=== PATIENT | female | born 2005 | race Caucasian/White ===

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

== ENCOUNTER 2024-06-06 20:34 | Outpatient (REF) | payer BC, SELFPAY ==
--- OUTSIDE RECORDS SUMMARY | 2024-06-06 20:36 | XMS_ITS | Encounter Summary ---
Author Organization [facility] Address [address] [place] [address] Care Team Providers Care Academic Specialist Name Role Phone Unknown, Provider Primary Care Provider Unava ilable Encounter Details Date Type Department Care Team (Late st Contact Info) Description 09/12/2019 Lab Requisition [facility] Pathology & Laboratory Medicine - [address] [address] Unknown, Provider, Social History Tobacco Use Types Packs/Day Years Used Date Smoking Tobacco: Never Assessed Comments Unknown Sex and Gender Information Value Date Recorded Sex Assigned at Not on file Legal Sex Female 17:46 EDT Gender Identity Not on file Sexual Orientation Not on file documented as of this encounter Plan of Treatment Not on file documented as of this encounter Procedures Procedure Name Priority Date/Time Associated Diagnosis Comments CHLAMYDIA/N. GONORRHOEAE AMPLIFIED NUCLEIC ACID Routine 09/12/2019 16:21 EDT documented in this encounter Results * CHLAMYDIA/N. GONORRHOEAE AMPLIFIED RNA (09/12/2019 16:21 EDT) Neisseria gonorrhoeae Result Negative Negative 09/13/2019 14:03 EDT [facility] Chlamydia trachomatis Result Negative Negative 09/13/2019 14:03 EDT [facility] Swab ENTIRE WALL OF CERVIX / Unknown 09/12/2019 16:21 EDT 09/12/2019 21:56 EDT us Provider Unknown MICROBIOLOGY - GENERAL ORDER BENEDICTO Final Result [facility] [address] [place] [address] documented in this encounter Visit Diagnoses Not on filedocumented in this encounter Additional Health Concerns Infection Onset Date Last Indicated Resolved Time R/O COVID-19 12/12/2019 12/12/2019 12/17/2019 22:1 7 EDT documented as of this encounter Care Teams Academic Specialist Relationship Specialty Start Date End Date Unknown, Provider, PCP - General 05/07/20 documented as of this encounter
--- OUTSIDE RECORDS SUMMARY | 2024-06-06 20:36 | XMS_ITS | Encounter Summary ---
[place] [address] Care Team Providers Care Production Line Operator Name Role Phone Tulio Kline MD Primary Care Provider Encounter Details Date Type Department Care Team (Late st Contact Info) Description 07/24/2021 Transcribe Orders [facility] [place] [phone] Bonita Wallis MD [address] [place] [address] Bipolar 2 disorder Social History Tobacco Use Types Packs/Day Years Used Date Smoking Tobacco: Never Assessed Sex and Gender Information Value Date Recorded Sex Assigned at Not on file Gender Identity Not on file Sexual Orientation Not on file documented as of this encounter Plan of Treatment Not on file documented as of this encounter Visit Diagnoses Diagnosis Bipolar 2 disorder Other bipolar disorders documented in this encounter Care Teams Production Line Operator Relationship Specialty Start Date End Date Tulio Kline MD [address] [place] [id number] PCP - General General Internal Medicine 05/12/2108/05 documented as of this encounter
--- OUTSIDE RECORDS SUMMARY | 2024-06-06 20:36 | XMS_ITS | Continuity of Care Document ---
Author Organization [facility] Address [address] [place] [address] Care Team Providers Care Medical Records Supervisor Name Role Phone Alisha Early Chilo Primary Care Physician Encounter [facility] Date(s): 02/21/24 - 02/21/[address] [phone] [place] Encounter Diagnosis Abdominal pain(Discharge Diagnosis) - 02/21/24 Right upper quadrant pain(Final) - Left upper quadrant pain(Final) - Hematuria, unspecified(Final) - Discharge Disposition: Home or Self Care Attending Physician: An Ace MD Admitting Physician: An Ace MD Allergies, Adverse Reactions, Alerts Substance Criticality Severity Reaction Reaction Severity Status LATEX High criticality Severe Skin rash Act lynnette ibuprofen Unable to assess criticality Unknown Eruption Active aspirin Unable to assess criticality Unknown Eruption Active iodinated radiocontrast dyes Unable to assess criticality Unknown Active iodine topical High criticality Moderate Skin rash Active Assessment and Plan Extracted from: Title:ED Provider Note Author:Ashleigh Ace MD Date:02/21/24 Assessment/Plan 1.??Abdominal pain??R10.9 ??Patient reports lower abdominal pain??patient worried that her IUD is not in the right place??based??on ultrasound??in September. ??Patient also feels that she has hematuria at times however??urine is??reassuring and??renal colic is reassuring. ??Did discuss with her that we would place an order for her to be seen by the TECHNICAL ACCOUNT REPRESENTATIVE??office within the next week.?Patient reports that she has endometriosis that may cause her some problems and discomfort.?? Patient aware she may return to the emergency department at anytime or follow-up with her primary care provider. Ordered: ED Visit Follow Up [facility] OBSTEPHAN[facility], Orders for future visit, 02/21/24 18:06:00 EDT, Abdominal pain ?? 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 Additional Instructions: Future Appointments Immunizations Given and Recorded Vaccine Date Status Refusal Reason HPV, unspecified formulation 09/07/14 Recorded meningococcal polysaccharide vaccine 09/07/14 Prasanth rded poliovirus vaccine, inactivated 07/10/10 Recorded tetanus/diphth/pertuss (Tdap) adult/adol 09/19/08 Recorded varicella virus vaccine 06/06/08 Recorded measles/mumps/rubella virus vaccine 04/09/08 Recor ded pneumococcal 13-valent conjugate vaccine 04/12/06 Recorded haemophilus b conjugate (HbOC) vaccine 11/24/04 Re corded pneumococcal 23-polyvalent vaccine 03 Record ed hepatitis B pediatric vaccine 03 Recorded Results Laboratory List Name Date Test Urine Qual 02/21/24 Urinalysis with Micro if Indicated and C ulture if Indicated 02/21/24 Urinalysis Microscopic 02/21/24 Beta hCG Quantitative 02/21/24 CBC w/ Diff 02/21/24 Comprehensive Metabolic Panel (CMP) 02/20 Lipase Level 02/21/24 Automated Diff 02/21/24 Most recent to oldest [Reference Range]: 1 WBC [5.0-10.0 x10^3/mcL] 13.5 x10^3/mcL *HI* (02/21/24 3:12 PM) RBC [4.1-5.3 x10^6/mcL] 4.5 x10^6/mcL (02/21/24 3:12 PM) Neutro Auto [40.0-75.0 %] 67.9 % (02/21/24 3:12 PM) Lymph Auto [20.0-50.0 %] 22.6 % (02/21/24 3:12 PM) [place] Auto [2.0-15.0 %] 6.4 % (02/21/24 3:12 PM) Basophil Auto [0.0-1.0 %] 0.6 % (02/21/24 3:12 PM) BUN [7-18 mg/dL] 9 mg/dL (02/21/24 3:12 PM) UA Color Yellow (02/21/24 5:03 PM) UA WBC [0-3] 25-50 *ABN* (02/21/24 5:03 PM) Glucose Level [74-106 mg/dL] 118 mg/dL *HI* (02/21/24 3:12 PM) Potassium Level [3.5-5.1 mmol/L] 3.4 mmo l/L *LOW* (02/21/24 3:12 PM) MCV [80.0-96.0 fL] 92.4 fL (02/21/24 3:12 PM) UA Urobilinogen Normal *NA* (02/21/24 5:03 PM) UA Bili [Negative] Negative *NA* (02/21/24 5:03 PM) UA Ketones Negative *NA* (02/21/24 5:03 PM) AST [15-37 unit/L] 14 unit/L *LOW* (02/21/24 3:12 PM) ALT [14-59 unit/L] 16 unit/L (02/21/24 3:12 PM) MCHC [31.0-35.0 g/dL] 33.9 g/dL (02/21/24 3:12 PM) Sodium Level [136-145 mmol/L] 139 mmol/L (02/21/24 3:12 PM) UA RBC [0-2] 10-25 (02/21/24 5:03 PM) UA Leuk Est 2+ *ABN* (02/21/24 5:03 PM) UA Nitrite Negative *NA* (02/21/24 5:03 PM) UA Glucose [Negative] Negative *NA* (02/21/24 5:03 PM) Hct [37.0-47.0 %] 41.3 % (02/21/24 3:12 PM) UA Bacteria Rare /HPF (02/21/24 5:03 PM) Lipase Level [16-77 unit/L] 23 unit/L 1 (02/21/24 3:12 PM) Calcium Level [8.5-10.1 mg/dL] 9.0 mg/dL (02/21/24 3:12 PM) Albumin Level [3.4-5.0 g/dL] 4.0 g/dL (02/21/24 3:12 PM) Protein Total [6.4-8.2 g/dL] 7.9 g/dL (02/21/24 3:12 PM) UA Protein Trace *ABN* (02/21/24 5:03 PM) MCH [26.0-32.0 pg] 31.3 pg (02/21/24 3:12 PM) Neutro Absolute 9.2 x10^3/mcL *NA* (02/21/24 3:12 PM) Bilirubin Total [0.2-1.0 mg/dL] 0.6 mg/d L (02/21/24 3:12 PM) Hgb [12.0-16.0 g/dL] 14.0 g/dL (02/21/24 3:12 PM) Alk Phos [46-146 unit/L] 74 unit/L (02/21/24 3:12 PM) UA Blood 3+ *ABN* (02/21/24 5:03 PM) UA Mucous None Seen /HPF (02/21/24 5:03 PM) UA Spec Grav <=1.005 *NA* (02/21/24 5:03 PM) Platelets [130-450 x10^3/mcL] 191 x10^3/ mcL (02/21/24 3:12 PM) CO2 [21-32 mmol/L] 23 mmol/L (02/21/24 3:12 PM) UA Squam Epithelial [None Seen] Rare (02/21/24 5:03 PM) UA pH 6.5 *NA* (02/21/24 5:03 PM) eGFR Non-AA [>=60] 110 (02/21/24 3:12 PM) eGFR AA [>=60] 110 (02/21/24 3:12 PM) UA Appear Hazy *ABN* (02/21/24 5:03 PM) Chloride Level [98-107 mmol/L] 104 mmol/ L (02/21/24 3:12 PM) RDW-CV [11.5-14.5 %] 12.5 % (02/21/24 3:12 PM) Imm Gran Auto [0.0-0.9 %] 0.4 % (02/21/24 3:12 PM) Slide Review Not Indicated (02/21/24 3:12 PM) UA Culture Ind?. Indicated (02/21/24 5:03 PM) Creatinine Level [0.55-1.02 mg/dL] 0.79 mg/dL (02/21/24 3:12 PM) Eos, Auto [1.0-6.0 %] 2.1 % (02/21/24 3:12 PM) U hCG Ql Negative (02/21/24 5:03 PM) Beta hCG Qnt [1-6 mIntlUnit/mL] <1 mIntl Unit/mL *LOW* (02/21/24 3:12 PM) 1Interpretive Data: Effective 03/26/22, [facility] has switched to a revised Lipase test.Note new ReferenceRange. Orders for Microbiology Reports Name Date Urine Culture 02/21/24 Microbiology Reports TEST:Urine Culture STATUS:Order in Progress BODY SITE: SOURCE:Urine COLLECTED DATE/TIME:02/21/24 5:03 PM PRELIMINARY REPORT No growth at 24 hours. Vital Signs Most recent to oldest [Reference Range]: 1 2 3 Temperature Temporal Artery [36-38 Deg C] 37.0 Deg C (02/21/24 6:10 PM) 37.4 Deg C (02/21/24 2:56 PM) Temperature Temporal Artery (DegF) [97.3-100 Deg F] 98.6 Deg F (02/21/24 6:10 PM) Peripheral Pulse Rate [60-100 bpm] 67 bpm (02/21/24 6:10 PM) 57 bpm *LOW* (02/21/24 4:04 PM) 104 bpm *HI* (02/21/24 2:56 PM) Respiratory Rate [12-24 br/min] 16 br/min (02/21/24 6:10 PM) 16 br/min (02/21/24 2:56 PM) Blood Pressure [90-140/60-90 mmHg] 115/72mmHg (02/21/24 6:10 PM) 114/84mmHg (02/21/24 4:00 PM) 119/78mmHg (02/21/24 2:56 PM) Mean Arterial Pressure, Cuff [65-140 mmHg] 86 mmHg (02/21/24 6:10 PM) 92 mmHg (02/21/24 2:56 PM) Weight Estimated 56.7 kg (02/21/24 2:56 PM) Body Mass Index Estimated 23.62 kg/m2 (02/21/24 2:56 PM) Height/Length Estimated 154.94 cm (02/21/24 2:56 PM) Social History Social History Type Response Tobacco Never tobacco user T obacco Use:. Sex Female Sex Representation Female (finding) Hospital Discharge Instructions Patient Education 02/21/2024 17:05:59 Abdominal Pain, Adult Abdominal Pain, Adult Pain in the abdomen (abdominal pain) can be caused by many things. Often, abdominal pain is not serious and it gets better with no treatment or by being treated at home. However, sometimes abdominal pain is serious. Your health care provider will ask questions about your medical history and do a physical exam to try to determine the cause of your abdominal pain. Follow these instructions at home: Medicines ??? Take rmqp-[id number]-hrnbkno and prescription medicines only as told by your health care provider. ??? Do not take a laxative unless told by your health care provider. General instructions ??? Watch your condition for any changes. ??? Drink enough fluid to keep your urine pale yellow. ??? Keep all follow-up visits as told by your health care provider. This is important. Contact a health care provider if: ??? Your abdominal pain changes or gets worse. ??? You are not hungry or you lose weight without trying. ??? You are constipated or have diarrhea for more than 2???3 days. ??? You have pain when you urinate or have a bowel movement. ??? Your abdominal pain wakes you up at night. ??? Your pain gets worse with meals, after eating, or with certain foods. ??? You are vomiting and cannot keep anything down. ??? You have a fever. ??? You have blood in your urine. Get help right away if: ??? Your pain does not go away as soon as your health care provider told you to expect. ??? You cannot stop vomiting. ??? Your pain is only in areas of the abdomen, such as the right side or the left lower portion of the abdomen. Pain on the right side could be caused by appendicitis. ??? You have bloody or black stools, or stools that look like tar. ??? You have severe pain, cramping, or bloating in your abdomen. ??? You have signs of dehydration, such as: ??? Dark urine, very little urine, or no urine. ??? Cracked lips. ??? Dry mouth. ??? Sunken eyes. ??? Sleepiness. ??? Weakness. ??? You have trouble breathing or chest pain. Summary ??? Often, abdominal pain is not serious and it gets better with no treatment or by being treated at home. However, sometimes abdominal pain is serious. ??? Watch your condition for any changes. ??? Take hxne-wbr-ivuqhrr and prescription medicines only as told by your health care provider. ??? Contact a health care provider if your abdominal pain changes or gets worse. ??? Get help right away if you have severe pain, cramping, or bloating in your abdomen. This information is not intended to replace advice given to you by your health care provider. Make sure you discuss any questions you have with your health care provider. Document Revised: 07/12/2020 Document Reviewed: 10/02/2019 [employer] Patient Education ?? 2022 [employer]. Follow Up Care 02/21/2024 14:54:44 With:Alisha Early NP Address: [address] [place] [address]- When:1 month Physician Emergency department Note * An Ace MD: PERFORM Event Display: ED Note Physician Authored Date: [id number] JOSE CHANG :2005 Age:18 years Sex:Female Visit Date:02/21/2024 Primary Care Physician: Alisha Early NP Basic Information Time Seen: An Ace MD / 02/21/2024 15:19 Chief Complaint Pt states that for the past few weeks pt has experiencing nausea and abdominal pain. Pt states she has limited voiding (urinary), states that when she does void she pees blood. Pt states she has bilateral flank pain and lower abdominal pain. States may be History Of Present Illness: Patient reports over the last couple weeks she feels like she has been urinating blood. ??Patient reports she just finished her period.?? Patient has had some back pain. ??Patient reports that she??had an ultrasound that did not show her IUD recently.?? Patient??has only been using??the IUD as control??patient reports her IUD is reportedly not in the right place.?? Patient denies any feverschills ear nose or throat pain chest pain cough??nausea vomiting positive abdominal pain positive hematuria??patient denies anything that she would have eaten that would have made her have??blood type urine. ??Patient reports low back??pain and SI joint area pain bilaterally.?? No extremity edema no skin rashes patient is here with a friend. Review of Systems: see hpi for ros Physical Exam Vitals & Measurements T:??37.4?C ??(Temporal Artery)?? HR:??57??(Peripheral)?? RR:??16?? BP:??114/84?? SpO2:??98%?? HT:??154.94??cm?? WT:??56.7??kg??(Estimated)?? BMI:??23.62?? Pain Score:??5?? O2 Therapy:??Room air?? General: Alert and oriented, well nourished,?No??acute distress Eye: PER?Normal??conjunctiva,??No??scleral icterus HENT: Normocephalic,??nontraumatic??Normal hearing Lungs: Clear to auscultation,?Non-labored?? respiration Heart:?Normal?? rate,?Regular??rhythm,?No??murmur,?No??gallop,?No??edema Chest: wall excursion wnl no abnormal movements no obvious deformities Abdomen: Soft, mild tenderness lower abdomen non-distended,?Normal?? bowel sounds,?No??masses Back:??Positive bilateral mild flank discomfort??bilaterally Musculoskeletal:?Normal?? range of motion and strength,?No??tenderness,?No??swelling Skin: Skin is warm, dry and pink,?No??rashes,?No??lesions Neurologic: Awake, alert and oriented X4 Psychiatric: Cooperative, appropriate mood and affect Medical Decision Making: For MDM please see under assessment and plan Procedure No Qualifying Data Assessment/Plan 1.??Abdominal pain??R10.9 ??Patient reports lower abdominal pain??patient worried that her IUD is not in the right place??based??on ultrasound??in September. ??Patient also feels that she has hematuria at times however??urine is??reassuring and??renal colic is reassuring. ??Did discuss with her that we would place an order for her to be seen by the TECHNICAL ACCOUNT REPRESENTATIVE??office within the next week.?Patient reports that she has endometriosis that may cause her some problems and discomfort.?? Patient aware she may return to the emergency department at anytime or follow-up with her primary care provider. Ordered: ED Visit Follow Up [facility], Orders for future visit, 02/21/24 18:06:00 EDT, Abdominal pain ?? Orders: Urine Culture, Urine, Stat collect, ST - Stat, 02/21/24 17:03:33 EDT, Once, Nurse collect, Collected, 02/21/24 17:03:33 EDT, Print Label, [id number] Patient Education Abdominal Pain, Adult Follow Up With When Contact Information Alisha Early [employer]NAGER [employer]ICLE Within [address] [place] [id number]- Additional Instructions: Problem List/Past Medical History Ongoing No qualifying data Historical No qualifying data Medication Administration Given 0.9% NaCl bolus, 1000 mL, Hydration Bolus Allergies LATEX??(Skin rash) iodine topical??(Skin rash) aspirin??(Eruption) ibuprofen??(Eruption) iodinated radiocontrast dyes Social History Alcohol Never Electronic Cigarette/Vaping Electronic Cigarette Use: Never. Substance Use Current, Marijuana Tobacco Never tobacco user Tobacco Use:. Referral Orders ED Visit Follow Up [facility], Orders for future visit, 02/21/24 18:06:00 EDT, Abdominal pain Lab Results CBC and Differential?? LATEST RESULTS?? WBC?? 02/21/24 15:12?? 13.5 ??High?? RBC?? 02/21/24 15:12?? 4.5?? Hgb?? 02/21/24 15:12?? 14.0?? Hct?? 02/21/24 15:12?? 41.3?? MCV?? 02/21/24 15:12?? 92.4?? MCH?? 02/21/24 15:12?? 31.3?? MCHC?? 02/21/24 15:12?? 33.9?? RDW-CV?? 02/21/24 15:12?? 12.5?? Platelets?? 02/21/24 15:12?? 191?? Neutro Auto?? 02/21/24 15:12?? 67.9?? Lymph Auto?? 02/21/24 15:12?? 22.6?? [place] Auto?? 02/21/24 15:12?? 6.4?? Eos, Auto?? 02/21/24 15:12?? 2.1?? Basophil Auto?? 02/21/24 15:12?? 0.6?? Imm Gran Auto?? 02/21/24 15:12?? 0.4?? Neutro Absolute?? 02/21/24 15:12?? 9.2?? Slide Review?? 02/21/24 15:12?? Not Indicated? Routine Chemistry?? LATEST RESULTS?? Sodium Level?? 02/21/24 15:12?? 139?? Potassium Level?? 02/21/24 15:12?? 3.4 ??Low?? Chloride Level?? 02/21/24 15:12?? 104?? CO2?? 02/21/24 15:12?? 23?? Alk Phos?? 02/21/24 15:12?? 74?? AST?? 02/21/24 15:12?? 14 ??Low?? ALT?? 02/21/24 15:12?? 16?? BUN?? 02/21/24 15:12?? 9?? Glucose Level?? 02/21/24 15:12?? 118 ??High?? Creatinine Level?? 02/21/24 15:12?? 0.79?? eGFR AA?? 02/21/24 15:12?? 110?? eGFR Non-AA?? 02/21/24 15:12?? 110?? Calcium Level?? 02/21/24 15:12?? 9.0?? Protein Total?? 02/21/24 15:12?? 7.9?? Albumin Level?? 02/21/24 15:12?? 4.0?? Bilirubin Total?? 02/21/24 15:12?? 0.6?? Lipase Level?? 02/21/24 15:12?? 23? Testing?? LATEST RESULTS?? U hCG Ql?? 02/21/24 17:03?? Negative?? Beta hCG Qnt?? 02/21/24 15:12?? <1 ??Low? UA Macroscopic?? LATEST RESULTS?? UA Color?? 02/21/24 17:03?? Yellow?? UA Appear?? 02/21/24 17:03?? Hazy Abnormal?? UA Glucose?? 02/21/24 17:03?? Negative?? UA Bili?? 02/21/24 17:03?? Negative?? UA Ketones?? 02/21/24 17:03?? Negative?? UA Spec Grav?? 02/21/24 17:03?? <=1.005?? UA Blood?? 02/21/24 17:03?? 3+ Abnormal?? UA pH?? 02/21/24 17:03?? 6.5?? UA Protein?? 02/21/24 17:03?? Trace Abnormal?? UA Urobilinogen?? 02/21/24 17:03?? Normal?? UA Nitrite?? 02/21/24 17:03?? Negative?? UA Leuk Est?? 02/21/24 17:03?? 2+ Abnormal?? UA Culture Ind?.?? 02/21/24 17:03?? Indicated? UA Microscopic?? LATEST RESULTS?? UA WBC?? 02/21/24 17:03?? 25-50 Abnormal?? UA RBC?? 02/21/24 17:03?? 10-25?? UA Squam Epithelial?? 02/21/24 17:03?? Rare?? UA Mucous?? 02/21/24 17:03?? None Seen?? UA Bacteria?? 02/21/24 17:03?? Rare? Electronically Signed on 02/21/2024 18:09 EDT An Ace MD Emergency department Discharge instructions * An Ace MD: PERFORM Event Display: ED Discharge Information Authored Date: [id number] JOSE CHANG :2005 Age:18 years Sex:Female Visit Date:02/21/2024 Primary Care Physician: Alisha Early [employer]NAGER [employer]ICLE Discharge Instructions We would like to thank you for allowing us to assist you with your healthcare needs. The following includes patient education materials and information regarding your injury/illness. Diagnosis from Today's Visit Abdominal pain Discharge Vitals Temperature??(Temporal Artery) 99.3 ??F (37.4 ??C) Heart Rate??(Peripheral) 57 Respiratory Rate?? 16 Blood Pressure?? 114/84?? SpO2?? 98% Height?? 61.00 in (154.94 cm) Weight??(Estimated) 125.02 lb (56.7 kg) BMI?? 23.62 Allergies LATEX??(Skin rash) iodine topical??(Skin rash) aspirin??(Eruption) ibuprofen??(Eruption) iodinated radiocontrast dyes What to Do Next Instructions from Your Care Team TECHNICAL ACCOUNT REPRESENTATIVE will call you with a follow-up appointment.?? If you do not hear from them call [phone]??to schedule a follow-up.?? You may take up to 800 mg of Motrin, Advil??(ibuprofen)??every 8 hours as needed for pain or discomfort??and or??up to??1000 mg??of Tylenol??(acetaminophen) every 6 hours as needed??for pain or discomfort for maximum 4000 mg in 24 hours or you may permanently hurt your liver.You may try heat to your abdomen.?? Make sure to continue drinking plenty of fluids.?? If you worsen return to the emergency department or see your TECHNICAL ACCOUNT REPRESENTATIVE or primary care provider sooner. You Need to Schedule the Following Appointments Follow Up with??Alisha Early NP When:??Within 1 month Where: [address] [place] [id number]- Upcoming Scheduled Appointments 2023 1:45 PM EDT ?? With: Ashli [facility], Anthony Mcgovern MD Where: [facility] [address] [place] [address], [address] [place] [address] Status: Confirmed You were treated today on an emergency basis; it may be casanova to contact your primary care provider to notify them of your visit today. You may have been referred to your regular doctor or a specialist, please follow up as instructed. If your condition worsens or you can't get in to see the doctor, contact the Emergency Department. Education Materials Abdominal Pain, Adult Pain in the abdomen (abdominal pain) can be caused by many things. Often, abdominal pain is not serious and it gets better with no treatment or by being treated at home. However, sometimes abdominal pain is serious. Your health care provider will ask questions about your medical history and do a physical exam to try to determine the cause of your abdominal pain. Follow these instructions at home: Medicines ? Take kzjw-ekg-xjomgzr and prescription medicines only as told by your health care provider. ? Do not take a laxative unless told by your health care provider. General instructions ? Watch your condition for any changes. ? Drink enough fluid to keep your urine pale yellow. ? Keep all follow-up visits as told by your health care provider. This is important. Contact a health care provider if: ? Your abdominal pain changes or gets worse. ? You are not hungry or you lose weight without trying. ? You are constipated or have diarrhea for more than 2???3 days. ? You have pain when you urinate or have a bowel movement. ? Your abdominal pain wakes you up at night. ? Your pain gets worse with meals, after eating, or with certain foods. ? You are vomiting and cannot keep anything down. ? You have a fever. ? You have blood in your urine. Get help right away if: ? Your pain does not go away as soon as your health care provider told you to expect. ? You cannot stop vomiting. ? Your pain is only in areas of the abdomen, such as the right side or the left lower portion of the abdomen. Pain on the right side could be caused by appendicitis. ? You have bloody or black stools, or stools that look like tar. ? You have severe pain, cramping, or bloating in your abdomen. ? You have signs of dehydration, such as: ? Dark urine, very little urine, or no urine. ? Cracked lips. ? Dry mouth. ? Sunken eyes. ? Sleepiness. ? Weakness. ? You have trouble breathing or chest pain. Summary ? Often, abdominal pain is not serious and it gets better with no treatment or by being treated at home. However, sometimes abdominal pain is serious. ? Watch your condition for any changes. ? Take wovi-wnx-clhqjyr and prescription medicines only as told by your health care provider. ? Contact a health care provider if your abdominal pain changes or gets worse. ? Get help right away if you have severe pain, cramping, or bloating in your abdomen. This information is not intended to replace advice given to you by your health care provider. Make sure you discuss any questions you have with your health care provider. Document Revised: 07/12/2020 Document Reviewed: 10/02/2019 Elsevier Patient Education ?? 2022 [employer] Tests Performed Medications and Immunizations Administered Given 0.9% NaCl bolus, 1000 mL, Hydration Bolus Lab Test Name Test Result Date/Time WBC 13.5 x10^3/mcL 02/21/2024 15:12 EDT RBC 4.5 x10^6/mcL 02/21/2024 15:12 EDT Hgb 14.0 g/dL 02/21/2024 15:12 EDT Hct 41.3 % 02/21/2024 15:12 EDT MCV 92.4 fL 02/21/2024 15:12 EDT MCH 31.3 pg 02/21/2024 15:12 EDT MCHC 33.9 g/dL 02/21/2024 15:12 EDT RDW-CV 12.5 % 02/21/2024 15:12 EDT Platelets 191 x10^3/mcL 02/21/2024 15:12 EDT Neutro Auto 67.9 % 02/21/2024 15:12 EDT Lymph Auto 22.6 % 02/21/2024 15:12 EDT [place] Auto 6.4 % 02/21/2024 15:12 EDT Eos, Auto 2.1 % 02/21/2024 15:12 EDT Basophil Auto 0.6 % 02/21/2024 15:12 EDT Imm Gran Auto 0.4 % 02/21/2024 15:12 EDT Neutro Absolute 9.2 x10^3/mcL 02/21/2024 15:12 EDT Slide Review Not Indicated 02/21/2024 15:12 EDT Sodium Level 139 mmol/L 02/21/2024 15:12 EDT Potassium Level 3.4 mmol/L 02/21/2024 15:12 EDT Chloride Level 104 mmol/L 02/21/2024 15:12 EDT CO2 23 mmol/L 02/21/2024 15:12 EDT Alk Phos 74 unit/L 02/21/2024 15:12 EDT AST 14 unit/L 02/21/2024 15:12 EDT ALT 16 unit/L 02/21/2024 15:12 EDT BUN 9 mg/dL 02/21/2024 15:12 EDT Glucose Level 118 mg/dL 02/21/2024 15:12 EDT Creatinine Level 0.79 mg/dL 02/21/2024 15:12 EDT eGFR AA 110 02/21/2024 15:12 EDT eGFR Non-AA 110 02/21/2024 15:12 EDT Calcium Level 9.0 mg/dL 02/21/2024 15:12 EDT Protein Total 7.9 g/dL 02/21/2024 15:12 EDT Albumin Level 4.0 g/dL 02/21/2024 15:12 EDT Bilirubin Total 0.6 mg/dL 02/21/2024 15:12 EDT Lipase Level 23 unit/L 02/21/2024 15:12 EDT U hCG Ql NEGATIVE 02/21/2024 17:03 EDT Beta hCG Qnt <1 mIntlUnit/mL 02/21/2024 15:12 EDT UA Color YELLOW. 02/21/2024 17:03 EDT UA Appear Hazy- Clinitek 02/21/2024 17:03 EDT UA Glucose NEGATIVE 02/21/2024 17:03 EDT UA Bili NEGATIVE 02/21/2024 17:03 EDT UA Ketones NEGATIVE 02/21/2024 17:03 EDT UA Spec Grav <=1.005 02/21/2024 17:03 EDT UA Blood 3+ 02/21/2024 17:03 EDT UA pH 6.5 02/21/2024 17:03 EDT UA Protein TRACE. 02/21/2024 17:03 EDT UA Urobilinogen 0.2 Uro 02/21/2024 17:03 EDT UA Nitrite NEGATIVE 02/21/2024 17:03 EDT UA Leuk Est 2+ 02/21/2024 17:03 EDT UA Culture Ind?. Indicated 02/21/2024 17:03 EDT UA WBC 25-50 02/21/2024 17:03 EDT UA RBC 10-25 02/21/2024 17:03 EDT UA Squam Epithelial Rare 02/21/2024 17:03 EDT UA Mucous None Seen 02/21/2024 17:03 EDT UA Bacteria Rare 02/21/2024 17:03 EDT Patient/Radiologic Electronic Specialist Signature Patient Name:BERNARDO JOSE [place] I have received this information and my questions have been answered. Patient/Radiologic Electronic Specialist Name: Patient/Radiologic Electronic Specialist Signature: Relationship to Patient: Witness Name/Signature: Date: Electronically Signed on: 02/21/2024 18:07 EDTSigned by:[facility] Patient Care team information Care Team Personnel Name: Alisha Early NP Position: PowerChart View Only Member Role: Informed Provider Address: [address] [place] [address] Care Team Related Persons Name: SAVANNA CHANG Name: SAVANNA CHANG
--- OUTSIDE RECORDS SUMMARY | 2024-06-06 20:36 | XMS_ITS | Continuity of Care Document ---
Author Organization [facility] Address [address] [place] [address] Care Team Providers Care Sales Account Associate Name Role Phone Angelveena Alisha Chilo Primary Care Physician [facility] Date[facility] 04/[facility]/24 - 04/09/[address] [phone] [place] Discharge Disposition: Home or Self Care Attending Physician: Stella Elder MD Admitting Physician: Stella Elder MD Allergies, Adverse Reactions, Alerts Substance Criticality Severity Reaction Reaction Severity Status LATEX High criticality Severe Skin rash Act lynnette iodine topical High criticality Moderate Skin rash Active iodinated radiocontrast dyes Unable to assess criticality Unknown Active Assessment and Plan Extracted from: Title:ED Provider Note Author:Tulio Beckham MD Date:04/09/24 Ordered: Crutches, 04/09/24 15:14:00 EST, Stop date 04/09/24 15:14:00 EST, 04/09/24 15:14:00 EST Discharge Patient, 04/09/24 15:15:00 EST, Home Independently, Constant Indicator Immunizations Given and Recorded Vaccine Date Status [...] ed hepatitis B pediatric vaccine 03 Recorded Problem List Condition Confirmation Course Effective Dates Status Health St atus Informant Numbness and tingling of right upper extremity Confirmed Active Vital Signs Most recent to oldest [Reference Range]: 1 Temperature Temporal Artery [36-38 Deg C ] 36.5 Deg C (04/09/24 1:33 PM) Heart Rate Monitored [60-100 bpm] 88 bpm (04/09/24 1:33 PM) Respiratory Rate [12-24 br/min] 18 br/mi n (04/09/24 1:33 PM) Blood Pressure [90-120/60-80 mmHg] 113/8 6mmHg (04/09/24 1:33 PM) Mean Arterial Pressure, Cuff [65-140 mmH g] 95 mmHg (04/09/24 1:33 PM) Weight Estimated 54.43 kg (04/09/24 1:33 PM) Body Mass Index Estimated 22.67 kg/m2 (04/09/24 1:33 PM) Height/Length Estimated 154.94 cm (04/09/24 1:33 PM) Social History Social History Type Response Tobacco Never tobacco user T obacco Use:. Sex Female Sex Representation Female (finding) Physician Emergency department Note * Tulio Beckham MD: PERFORM Event Display: ED Note Physician Authored Date: [id number] JOSE CHANG :2005 Age:18 years Sex:Female Visit Date:04/09/2024 Primary Care Physician: Alisha Early NP Basic Information Time Seen: Tulio Beckham MD / 04/09/2024 13:40 Chief Complaint Patient states that a bed frame was dropped on foot around 12, unable to bear weight on the foot. APAP around 1130 History Of Present Illness: Bed frame fell on foot 2 hours prior to admission. ??Pain with walking.?? Small abrasion over pointof impact.?? Prior treatment with acetaminophen. Review of Systems: No other injuries. Physical Exam Vitals & Measurements T:??36.5?C ??(Temporal Artery)?? HR:??88??(Monitored)?? RR:??18?? BP:??113/86?? SpO2:??100%?? HT:??154.94??cm?? WT:??54.43??kg??(Estimated)?? BMI:??22.67?? Pain Score:??6?? O2 Therapy:??Room air?? Abrasion over dorsum of foot. ??No significant deformity or ecchymoses.?? Capillary refill normal Medical Decision Making: Problem complexity is low. ??Data complexity is low. ??Management risk are low.?? [facility] coding [address] Procedure No Qualifying Data Assessment/Plan Ordered: Crutches, 04/09/24 15:14:00 EST, Stop date 04/09/24 15:14:00 EST, 04/09/24 15:14:00 EST Discharge Patient, 04/09/24 15:15:00 EST, Home Independently, Constant Indicator Problem List/Past Medical History Ongoing Numbness and tingling of right upper extremity Historical No qualifying data Allergies LATEX??(Skin rash) iodine topical??(Skin rash) iodinated radiocontrast dyes Social History Alcohol Never Electronic Cigarette/Vaping Electronic Cigarette Use: Never. Substance Use Current, Marijuana Tobacco Never tobacco user Tobacco Use:. Electronically Signed on 04/09/2024 15:16 EST Tulio Beckham MD Emergency department Discharge instructions * Tulio Beckham MD: PERFORM Event Display: ED Discharge Information Authored Date: [id number] JOSE CHANG :2005 Age:18 years Sex:Female Visit Date:04/09/2024 Primary Care Physician: Alisha Early LAMINATOR PRINTED CIRCUIT BOARDS Discharge Instructions We would like to thank you for allowing us to assist you with your healthcare needs. The following includes patient education materials and information regarding your injury/illness. Discharge Vitals Temperature??(Temporal Artery) 97.7 ??F (36.5 ??C) Heart Rate??(Monitored) 88 Respiratory Rate?? 18 Blood Pressure?? 113/86?? SpO2?? 100% Height?? 61.00 in (154.94 cm) Weight??(Estimated) 120.02 lb (54.43 kg) BMI?? 22.67 Allergies LATEX??(Skin rash) iodine topical??(Skin rash) iodinated radiocontrast dyes What to Do Next Instructions from Your Care Team There is no skeletal injuries to your foot. ??You have contused the tissues??and there is??some internal bleeding and swelling..?? No weightbearing x 2 days. ??Apply ice.?? For pain or discomfort take Tylenol and ibuprofen.?? After 2 days gradually increase use. ??There should be gradual improvement. ?? Tulio Beckham MD You were treated today on an emergency basis; it may be casanova to contact your primary care provider to notify them of your visit today. You may have been referred to your regular doctor or a specialist, please follow up as instructed. If your condition worsens or you can't get in to see the doctor, contact the Emergency Department. Patient/Hollow Tile Partition Erector Signature Patient Name:FRANSISCOARMANIJOSE Nancie I have received this information and my questions have been answered. Patient/Hollow Tile Partition Erector Name: Patient/Hollow Tile Partition Erector Signature: Relationship to Patient: Witness Name/Signature: Date: Electronically Signed on: 04/09/2024 15:16 ESTSigned by:[facility] Patient Care team information Care Team Personnel Name: Alisha Early LAMINATOR [employer] BOARDS Position: PowerChart View Only Member Role: Informed Provider Address: [address] [place] [address] Care Team Related Persons Name: SAVANNA CHANG Name: SAVANNA CHANG
--- OUTSIDE RECORDS SUMMARY | 2024-06-06 20:36 | XMS_ITS | Continuity of Care Document ---
Author Organization [facility] Address [address] [place] [address] Care Team Providers Care Weft Straightener Name Role Phone Alisha Early Primary Care Physician [phone] Encounter [facility] Date(s): 10/04/23 - 10/04/[address] [phone] Discharge Disposition: Home or Self Care Attending Physician: Alisha Early MAJOR GENERAL Admitting Physician: Alisha Early MAJOR GENERAL Referring Physician: Alisha Early MAJOR GENERAL Allergies, Adverse Reactions, Alerts Substance Reaction Severity Status LATEX Skin rash Severe Active iodine topical Skin rash Moderate Active iodinated radiocontrast dyes Unknown Active Immunizations Given and Recorded Vaccine Date Status [...] ed hepatitis B pediatric vaccine 03 Recorded Social History Social History Type Response Tobacco Never tobacco user T obacco Use:. Sex Female Patient Care team information Care Team Personnel Name: Alisha Early MAJOR GENERAL Position: PowerChart View Only Member Role: Primary Care Physician Address: Address: [address] [place] [phone] Care Team Related Persons Name: SAVANNA CHANG Address: [address] [phone] Name: SAVANNA CHANG Address: [address] [phone]
--- OUTSIDE RECORDS SUMMARY | 2024-06-06 20:36 | XMS_ITS | Referral Summary ---
Author Organization [facility] Address [address] [place] [address] Care Team Providers Care Portable Machine Sander Name Role Phone Unknown, Provider Primary Care Provider Unava ilable Social History Tobacco Use Types Packs/Day Years Used Date Smoking Tobacco: Never Assessed Interpersonal Safety Answer Date Record ed Physically Hurt Never 04/30/2020 Verbally Threaten Not on file 04/30/2020 Comments Unknown Sex and Gender Information Value Date Recorded Sex Assigned at Not on file Legal Sex Female 17:46 EDT Gender Identity Not on file Sexual Orientation Not on file Plan of Treatment Not on file Insurance [facility] Care Teams Portable Machine Sander Relationship Specialty Start Date End Date Unknown, Provider, PCP - General 05/07/20
--- OUTSIDE RECORDS SUMMARY | 2024-06-06 20:36 | XMS_ITS | Clinical Summary ---
Author Organization [facility] Address [address] [place] [address] Care Team Providers Care Hog Sticker Name Role Phone Unknown, Provider Primary Care [...] Orientation Not on file Plan of Treatment Health Maintenance Due Date Last Done Comments Hepatitis C Screen 2003 Hepatitis B Vaccine (1 of 3 - 19+ 3-dose series) 08/18 COVID-19 Vaccine (2023- season) 2024 Insurance [facility] Care Teams Hog Sticker Relationship Specialty Start Date End Date Unknown, Provider, PCP - General 05/07/20
--- OUTSIDE RECORDS SUMMARY | 2024-06-06 20:36 | XMS_ITS | Encounter Summary ---
Author Organization [facility] [place] [address] Care Team Providers Care Director Of Retail Operations Name Role Phone Tulio Kline MD Primary Care Provider Reason for Referral * Psychiatric (Routine) - Closed Specialty Diagnoses / Procedures Referred By Contac t Referred To Contact Psychiatry Diagnoses Bipolar 2 disorder Other specified anxiety disorders Personal history of other mental and behavioral disorders Tulio Kline MD [address] [place] [phone] [facility] [address] [place] [address] Referral ID Status Reason Start Date Expiration Date V isits Requested Visits Authorized [id number] Closed Consult, Test & Treat PCP Updated and/or Approved 07/21/2021 07/21/2022 6 6 Encounter Details Date Type Department Care Team (Late st Contact Info) Description 07/24/2021 Transcribe Orders Psychiatry [place] [address] Tulio Kline MD [address] [place] [id number] Bipolar 2 disorder Social History Tobacco Use Types Packs/Day Years Used Date Smoking Tobacco: Never Assessed Sex and Gender Information Value Date Recorded Sex Assigned at Not on file Gender Identity Not on file Sexual Orientation Not on file documented as of this encounter Plan of Treatment Scheduled Referrals Name Type Priority Associated Diagnoses Order Schedule Referral to Child and Adolescent Psychiatry Outpatient Referral Routine Bipolar 2 disorder Ordered: 07/24/2021 documented as of this encounter Visit Diagnoses Diagnosis Bipolar 2 disorder Other bipolar disorders documented in this encounter Care Teams Director Of Retail Operations Relationship Specialty Start Date End Date Tulio Kline MD [address] [address] PCP - General General Internal Medicine 05/12/2108/05 documented as of this encounter
--- OUTSIDE RECORDS SUMMARY | 2024-06-06 20:36 | XMS_ITS | Continuity of Care Document ---
Author Organization [facility] Address [address] [place] [address] Care Team Providers Care Environmental Services Assistant Name Role Phone Alisha Early Chilo Primary Care Physician [phone] Encounter [facility] Date(s): 03/16/24 - 03/16/24 [facility] [address] [place] [address] [place] Encounter Diagnosis Accidental drug ingestion(Discharge Diagnosis) - 03/16/24 Discharge Disposition: Home or Self Care Attending Physician: Tenzin Hughes MD Admitting Physician: Tenzin Hughes MD Allergies, Adverse Reactions, Alerts Substance Criticality Severity Reaction Reaction Severity Status LATEX High criticality Severe Skin rash Act lynnette iodinated radiocontrast dyes Unable to assess criticality Unknown Active iodine topical High criticality Moderate Skin rash Active Assessment and Plan Future Appointments Immunizations Given and Recorded Vaccine [...] tingling of right upper extremity Confirmed Active Results Laboratory List Name Date Automated Diff 10/10/24 Acetaminophen Level 03/16/24 CBC w/ Diff 03/16/24 Comprehensive Metabolic Panel 03/16/24 PT/ INR 03/16/24 Most recent to oldest [Reference Range]: 1 WBC [5.0-10.0 x10^3/mcL] 9.1 x10^3/mcL (03/16/24 8:15 PM) RBC [4.1-5.3 x10^6/mcL] 4.6 x10^6/mcL (03/16/24 8:15 PM) Neutro Auto [40.0-75.0 %] 62.3 % (03/16/24 8:15 PM) Lymph Auto [20.0-50.0 %] 29.9 % (03/16/24 8:15 PM) [place] Auto [2.0-15.0 %] 6.5 % (03/16/24 8:15 PM) Basophil Auto [0.0-1.0 %] 0.8 % (03/16/24 8:15 PM) Prothrombin Time [9.0-11.0 seconds] 11.7 seconds *HI* (03/16/24 8:15 PM) INR 1.1 1 *NA* (03/16/24 8:15 PM) BUN [7-18 mg/dL] 7 mg/dL (03/16/24 8:15 PM) Glucose Level [74-106 mg/dL] 109 mg/dL *HI* (03/16/24 8:15 PM) Potassium Level [3.5-5.1 mmol/L] 3.6 mmo l/L (03/16/24 8:15 PM) MCV [80.0-96.0 fL] 92.1 fL (03/16/24 8:15 PM) AST [15-37 unit/L] 19 unit/L (03/16/24 8:15 PM) ALT [14-59 unit/L] 18 unit/L (03/16/24 8:15 PM) MCHC [31.0-35.0 g/dL] 34.1 g/dL (03/16/24 8:15 PM) Sodium Level [136-145 mmol/L] 139 mmol/L (03/16/24 8:15 PM) Hct [37.0-47.0 %] 42.2 % (03/16/24 8:15 PM) Calcium Level [8.5-10.1 mg/dL] 9.3 mg/dL (03/16/24 8:15 PM) Albumin Level [3.4-5.0 g/dL] 4.5 g/dL (03/16/24 8:15 PM) Protein Total [6.4-8.2 g/dL] 8.3 g/dL *HI* (03/16/24 8:15 PM) MCH [26.0-32.0 pg] 31.4 pg (03/16/24 8:15 PM) Neutro Absolute 5.7 x10^3/mcL *NA* (03/16/24 8:15 PM) Bilirubin Total [0.2-1.0 mg/dL] 0.8 mg/d L (03/16/24 8:15 PM) Hgb [12.0-16.0 g/dL] 14.4 g/dL (03/16/24 8:15 PM) Alk Phos [46-146 unit/L] 70 unit/L (03/16/24 8:15 PM) Platelets [130-450 x10^3/mcL] 235 x10^3/ mcL (03/16/24 8:15 PM) CO2 [21-32 mmol/L] 28 mmol/L (03/16/24 8:15 PM) eGFR Non-AA [>=60] 81 (03/16/24 8:15 PM) eGFR AA [>=60] 81 (03/16/24 8:15 PM) Acetaminophen Level [10.0-20.0 ug/mL] <0 .5 ug/mL *LOW* (03/16/24 8:15 PM) Chloride Level [98-107 mmol/L] 102 mmol/ L (03/16/24 8:15 PM) RDW-CV [11.5-14.5 %] 12.6 % (03/16/24 8:15 PM) Imm Gran Auto [0.0-0.9 %] 0.2 % (03/16/24 8:15 PM) Creatinine Level [0.55-1.02 mg/dL] 1.02 mg/dL (03/16/24 8:15 PM) Eos, Auto [1.0-6.0 %] 0.3 % *LOW* (03/16/24 8:15 PM) 1Interpretive Data: INR 2-2.5 Prophylaxis: Short term DVT INR 2-3 Prophylaxis: hip and femur surgery Therapy: DVT (3 mos) PE (3-6 mos) TIA (fci) Atr Fib (technician terminal and repeater) Syst. emb post DC Mitral Stenosis with emboli (technician terminal and repeater) Tissue prosthetic valves (3 mos min) INR 3-4.5 Therapy: recurrent DVT, PE (fci) Prosthetic heart valves (technician terminal and repeater) Vital Signs Most recent to oldest [Reference Range]: 1 Temperature Temporal Artery [36-38 Deg C ] 36.7 Deg C (03/16/24 9:00 PM) Heart Rate Monitored [60-100 bpm] 104 bp m *HI* (03/16/24 9:00 PM) Respiratory Rate [12-24 br/min] 20 br/mi n (03/16/24 9:00 PM) Blood Pressure [90-120/60-80 mmHg] 125/8 1mmHg *HI* (03/16/24 9:00 PM) Mean Arterial Pressure, Cuff [65-140 mmH g] 96 mmHg (03/16/24 9:00 PM) Weight 52.16 kg (03/16/24 9:00 PM) Weight Dosing 52.160 kg (03/16/24 9:00 PM) Social History Social History Type Response Tobacco Never tobacco user T obacco Use:. Sex Female Sex Representation Female (finding) Hospital Discharge Instructions Patient Education 03/16/2024 21:23:23 Accidental Drug Poisoning, Adult Accidental Drug Poisoning, Adult Accidental drug poisoning happens when a person accidentally takes too much of a substance, such asa prescription medicine, an nkbc-zqw-dstfikm medicine, a vitamin, a supplement, or an illegal drug.The effects of drug poisoning can be mild, dangerous, or even deadly. What are the causes? This condition is caused by taking too much of a medicine, illegal drug, or other substance. It often results from: ??? Lack of knowledge about a substance. ??? Using more than one substance at the same time. ??? An error made by the health care provider during prescribing or dispensing of the drug. ??? A lapse in memory, such as forgetting that you have already taken a dose of the medicine. ??? Suddenly using a substance after a long period of not using it. The following substances and medicines are more likely to cause an accidental drug poisoning: ??? Medicines that treat mental health conditions (psychotropic medicines). ??? Pain medicines. ??? Cocaine. ??? Heroin. ??? Multivitamins that contain iron. ??? Iscn-nqv-fsosnfk cold and cough medicines. What increases the risk? This condition is more likely to occur in: ??? Aging adults. Aging adults are at risk because they may: ??? Be taking many different medicines. ??? Have difficulty reading labels. ??? Forget when they last took their medicine. ??? People who use illegal drugs. ??? People who drink alcohol while using illegal drugs or certain medicines. ??? People with certain mental health conditions. What are the signs or symptoms? Symptoms of this condition depend on the substance and the amount that was taken. Common symptoms include: ??? Behavior changes, such as confusion. ??? Sleepiness. ??? Weakness. ??? Slowed breathing. ??? Nausea and vomiting. ??? Seizures. ??? Very large or small eye pupil size that does not change in response to changes in light. A drug poisoning can cause a very serious condition in which your blood pressure drops to a low level (shock). Symptoms of shock include: ??? Cold, clammy, or pale skin. ??? Blue lips. ??? Very slow breathing. ??? Extreme sleepiness. ??? Severe confusion. ??? Dizziness or fainting. How is this diagnosed? This condition is diagnosed based on: ??? Your symptoms. You will be asked about the substances you took and when you took them. ??? A physical exam. You may also have tests, including: ??? Urine tests. ??? Blood tests. ??? An electrocardiogram (ECG). How is this treated? This condition may need to be treated right away at the hospital. Treatment may involve: ??? Getting fluids and electrolytes through an IV. Electrolytes are salts and minerals in the blood. ??? Having a breathing tube inserted in your airway (endotracheal tube) to help you breathe. ??? Taking or receiving medicines. These may include medicines that: ??? Absorb any substance that is in your digestive system. ??? Block or reverse the effect of the substance that caused the drug poisoning. ??? Having your blood filtered through an artificial kidney machine (hemodialysis). ??? Ongoing counseling and mental health support. This may be provided if you used an illegal drug. Follow these instructions at home: Medicines ??? Take bbyb-leg-islqnfa and prescription medicines only as told by your health care provider. ??? Before taking a new medicine, ask your health care provider whether the medicine: ??? May cause side effects. ??? Might react with other medicines. ??? Keep a list of all the medicines that you take, including mtvt-vfo-wyyhqfo medicines, vitamins,supplements, and herbs. Bring this list with you to all of your medical visits. General instructions ??? Drink enough fluid to keep your urine pale yellow. ??? If you are working with a counselor or mental health professional, make sure to follow instructions given. ??? Do not drink alcohol if: ??? Your health care provider tells you not to drink. ??? You are , may be , or are planning to become . ??? If you drink alcohol: ??? Limit how much you have to: ??? 0???1 drink a day for women. ??? 0???2 drinks a day for men. ??? Know how much alcohol is in your drink. In the [place] one drink equals one 12 oz bottle of beer (355 mL), one 5 oz glass of wine (148 mL), or one 1?? oz glass of hard liquor (44 mL). ??? Keep all follow-up visits. This is important. How is this prevented? Get help if you are struggling with: ??? Alcohol or drug use. ??? Depression or another mental health condition. ??? Keep the phone number of your local poison control center near your phone or on your mobile phone. The hotline of the [place] [employer] of Poison Control Centers is . ??? Read the drug inserts that come with your medicines. ??? Create a system for taking your medicine, such as a pillbox, that will help you avoid taking too much of the medicine. ??? Do not drink alcohol while taking medicines unless your health care provider approves. ??? Do not use illegal drugs. ??? Do not take medicines that are not prescribed for you. Contact a health care provider if: ??? Your symptoms return. ??? You develop new symptoms or side effects after taking a medicine. ??? You have questions about possible drug poisoning. Call your local poison control center at . Get help right away if: ??? You think that you or someone else may have taken too much of a substance. ??? You or someone else are having symptoms of accidental drug poisoning: ??? Behavior changes, such as confusion. ??? Sleepiness. ??? Slowed breathing. ??? Seizures. These symptoms may be an emergency. Get help right away. Call 911. ??? Do not wait to see if the symptoms will go away. ??? Do not drive yourself to the hospital. Summary ??? Accidental drug poisoning happens when a person accidentally takes too much of a substance, such as a prescription medicine, an pvte-uvn-gqjkjgd medicine, a vitamin, a supplement, or an illegal drug. ??? This condition is diagnosed based on your symptoms and a physical exam. You will be asked to tell your health care provider which substances you took and when you took them. ??? The effects of drug poisoning can be mild, dangerous, or even deadly. ??? This condition may need to be treated right away at the hospital. This information is not intended to replace advice given to you by your health care provider. Make sure you discuss any questions you have with your health care provider. Document Revised: 01/15/2022 Document Reviewed: 01/15/2022 [facility] Patient Education ?? 2022 [facility] [employer] Follow Up Care 03/16/2024 20:54:28 With:Alisha Early NP Address: [address] [place] [address]- When:1 week Emergency department Discharge instructions * Tenzin Hughes MD: PERFORM, MODIFY Event Display: ED Discharge Information Authored Date: [id number] JOSE CHANG :2005 Age:18 years Sex:Female Visit Date:03/16/2024 Primary Care Physician: Chute, Alisha H CREAM GATHERER Discharge Instructions We would like to thank you for allowing us to assist you with your healthcare needs. The following includes patient education materials and information regarding your injury/illness. Diagnosis from Today's Visit Accidental drug ingestion Discharge Vitals Temperature??(Temporal Artery) 98.1 ??F (36.7 ??C) Heart Rate??(Monitored) 104 Respiratory Rate?? 20 Blood Pressure?? 125/81?? SpO2?? 95% Weight?? 115.01 lb (52.16 kg) Allergies LATEX??(Skin rash) iodine topical??(Skin rash) iodinated radiocontrast dyes What to Do Next You Need to Schedule the Following Appointments Follow Up with??Alisha Early CREAM GATHERER When:??Within 1 week Where: [address] [place] [id number]- Upcoming Scheduled Appointments Wednesday 1:00 PM EDT ?? With: Ashli MORGAN, Anthony Mcgovern MD Where: [facility] [address] [place] [address], [address] [place] [address] Status: Confirmed You were treated [...] doctor, contact the Emergency Department. Education Materials Accidental Drug Poisoning, Adult Accidental drug poisoning happens when a person accidentally takes too much of a substance, such asa prescription medicine, an npke-dny-gbpeomy medicine, a vitamin, a supplement, or an illegal drug.The effects of drug poisoning can be mild, dangerous, or even deadly. What are the causes? This condition is caused by taking too much of a medicine, illegal drug, or other substance. It often results from: ? Lack of knowledge about a substance. ? Using more than one substance at the same time. ? An error made by the health care provider during prescribing or dispensing of the drug. ? A lapse in memory, such as forgetting that you have already taken a dose of the medicine. ? Suddenly using a substance after a long period of not using it. The following substances and medicines are more likely to cause an accidental drug poisoning: ? Medicines that treat mental health conditions (psychotropic medicines). ? Pain medicines. ? Cocaine. ? Heroin. ? Multivitamins that contain iron. ? Qsmz-eys-drycyka cold and cough medicines. What increases the risk? This condition is more likely to occur in: ? Aging adults. Aging adults are at risk because they may: ? Be taking many different medicines. ? Have difficulty reading labels. ? Forget when they last took their medicine. ? People who use illegal drugs. ? People who drink alcohol while using illegal drugs or certain medicines. ? People with certain mental health conditions. What are the signs or symptoms? Symptoms of this condition depend on the substance and the amount that was taken. Common symptoms include: ? Behavior changes, such as confusion. ? Sleepiness. ? Weakness. ? Slowed breathing. ? Nausea and vomiting. ? Seizures. ? Very large or small eye pupil size that does not change in response to changes in light. A drug poisoning can cause a very serious condition in which your blood pressure drops to a low level (shock). Symptoms of shock include: ? Cold, clammy, or pale skin. ? Blue lips. ? Very slow breathing. ? Extreme sleepiness. ? Severe confusion. ? Dizziness or fainting. How is this diagnosed? This condition is diagnosed based on: ? Your symptoms. You will be asked about the substances you took and when you took them. ? A physical exam. You may also have tests, including: ? Urine tests. ? Blood tests. ? An electrocardiogram (ECG). How is this treated? This condition may need to be treated right away at the hospital. Treatment may involve: ? Getting fluids and electrolytes through an IV. Electrolytes are salts and minerals in the blood. ? Having a breathing tube inserted in your airway (endotracheal tube) to help you breathe. ? Taking or receiving medicines. These may include medicines that: ? Absorb any substance that is in your digestive system. ? Block or reverse the effect of the substance that caused the drug poisoning. ? Having your blood filtered through an artificial kidney machine (hemodialysis). ? Ongoing counseling and mental health support. This may be provided if you used an illegal drug. Follow these instructions at home: Medicines ? Take zusz-wmc-qejrfcp and prescription medicines only as told by your health care provider. ? Before taking a new medicine, ask your health care provider whether the medicine: ? May cause side effects. ? Might react with other medicines. ? Keep a list of all the medicines that you take, including vzow-szz-khgwmyp medicines, vitamins, supplements, and herbs. Bring this list with you to all of your medical visits. General instructions ? Drink enough fluid to keep your urine pale yellow. ? If you are working with a counselor or mental health professional, make sure to follow instructionsgiven. ? Do not drink alcohol if: ? Your health care provider tells you not to drink. ? You are , may be , or are planning to become . ? If you drink alcohol: ? Limit how much you have to: ? 0???1 drink a day for women. ? 0???2 drinks a day for men. ? Know how much alcohol is in your drink. In the [place] one drink equals one 12 oz bottle of beer (355mL), one 5 oz glass of wine (148 mL), or one 1?? oz glass of hard liquor (44 mL). ? Keep all follow-up visits. This is important. How is this prevented? Get help if you are struggling with: ? Alcohol or drug use. ? Depression or another mental health condition. ? Keep the phone number of your local poison control center near your phone or on your mobile phone. The hotline of the [place] [employer] of Poison Control Centers is . ? Read the drug inserts that come with your medicines. ? Create a system for taking your medicine, such as a pillbox, that will help you avoid taking too much of the medicine. ? Do not drink alcohol while taking medicines unless your health care provider approves. ? Do not use illegal drugs. ? Do not take medicines that are not prescribed for you. Contact a health care provider if: ? Your symptoms return. ? You develop new symptoms or side effects after taking a medicine. ? You have questions about possible drug poisoning. Call your local poison control center at . Get help right away if: ? You think that you or someone else may have taken too much of a substance. ? You or someone else are having symptoms of accidental drug poisoning: ? Behavior changes, such as confusion. ? Sleepiness. ? Slowed breathing. ? Seizures. These symptoms may be an emergency. Get help right away. Call 911. ? Do not wait to see if the symptoms will go away. ? Do not drive yourself to the hospital. Summary ? Accidental drug poisoning happens when a person accidentally takes too much of a substance, such asa prescription medicine, an ujla-cuj-kmeqizh medicine, a vitamin, a supplement, or an illegal drug. ? This condition is diagnosed based on your symptoms and a physical exam. You will be asked to tell your health care provider which substances you took and when you took them. ? The effects of drug poisoning can be mild, dangerous, or even deadly. ? This condition may need to be treated right away at the hospital. This information is not intended to replace advice given to you by your health care provider. Make sure you discuss any questions you have with your health care provider. Document Revised: 01/15/2022 Document Reviewed: 01/15/2022 [employer] Patient Education ?? 2022 [employer] Tests Performed Lab Test Name Test Result Date/Time WBC 9.1 x10^3/mcL 03/16/2024 20:15 EDT RBC 4.6 x10^6/mcL 03/16/2024 20:15 EDT Hgb 14.4 g/dL 03/16/2024 20:15 EDT Hct 42.2 % 03/16/2024 20:15 EDT MCV 92.1 fL 03/16/2024 20:15 EDT MCH 31.4 pg 03/16/2024 20:15 EDT MCHC 34.1 g/dL 03/16/2024 20:15 EDT RDW-CV 12.6 % 03/16/2024 20:15 EDT Platelets 235 x10^3/mcL 03/16/2024 20:15 EDT Neutro Auto 62.3 % 03/16/2024 20:15 EDT Lymph Auto 29.9 % 03/16/2024 20:15 EDT [place] Auto 6.5 % 03/16/2024 20:15 EDT Eos, Auto 0.3 % 03/16/2024 20:15 EDT Basophil Auto 0.8 % 03/16/2024 20:15 EDT Imm Gran Auto 0.2 % 03/16/2024 20:15 EDT Neutro Absolute 5.7 x10^3/mcL 03/16/2024 20:15 EDT Prothrombin Time 11.7 seconds 03/16/2024 20:15 EDT INR 1.1 03/16/2024 20:15 EDT Sodium Level 139 mmol/L 03/16/2024 20:15 EDT Potassium Level 3.6 mmol/L 03/16/2024 20:15 EDT Chloride Level 102 mmol/L 03/16/2024 20:15 EDT CO2 28 mmol/L 03/16/2024 20:15 EDT Alk Phos 70 unit/L 03/16/2024 20:15 EDT AST 19 unit/L 03/16/2024 20:15 EDT ALT 18 unit/L 03/16/2024 20:15 EDT BUN 7 mg/dL 03/16/2024 20:15 EDT Glucose Level 109 mg/dL 03/16/2024 20:15 EDT Creatinine Level 1.02 mg/dL 03/16/2024 20:15 EDT eGFR AA 81 03/16/2024 20:15 EDT eGFR Non-AA 81 03/16/2024 20:15 EDT Calcium Level 9.3 mg/dL 03/16/2024 20:15 EDT Protein Total 8.3 g/dL 03/16/2024 20:15 EDT Albumin Level 4.5 g/dL 03/16/2024 20:15 EDT Bilirubin Total 0.8 mg/dL 03/16/2024 20:15 EDT Acetaminophen Level <0.5 ug/mL 03/16/2024 20:15 EDT Patient/Regional Agronomist Signature Patient Name:BERNARDO JOSE [place] I have received this information and my questions have been answered. Patient/Regional Agronomist Name: Patient/Regional Agronomist Signature: Relationship to Patient: Witness Name/Signature: Date: Electronically Signed on: 03/16/2024 22:24 EDTSigned by:ADDY Patient Care team information Care Team Personnel Name: Alisha Early CREAM GATHERER Position: PowerChart View Only Member Role: Informed Provider Address: [address] [place] [id number]- Care Team Related Persons Name: SAVANNA CHANG Name: SAVANNA CHANG
--- OUTSIDE RECORDS SUMMARY | 2024-06-06 20:36 | XMS_ITS | Encounter Summary ---
Author Organization [facility] Address [address] [place] [address] Care Team Providers Care Recycling Assistant Name Role Phone Unknown, Provider Primary Care Provider Unava ilable Encounter Details Date Type Department Care Team (Late st Contact Info) Description 05/15/2020 Lab Requisition [facility] Pathology & Laboratory Medicine - [address] [address] Kelley Devi MD [address] [place] [id number] Encounter for other general examination Social History Tobacco Use Types Packs/Day Years [...] Procedure Name Priority Date/Time Associated Diagnosis Comments SURGICAL PATHOLOGY Today 05/15/2020 10 :55 EST documented in this encounter Results * SURGICAL PATHOLOGY (05/15/2020 10:55 EST) Final Diagnosis A. OVARIAN FOSSA, RIGHT, BIOPSIES: - Features suggestive of endometriosis. B. PELVIC WALL, LEFT, BIOPSIES: - Features suggestive of endometriosis. See comment. 05/20/2020 10:39 EST [facility] Diagnosis Comment Deeper sections have been examined. 05/20/2020 10:39 EST [facility] Attestation There was significant resident/fellow involvement in the diagnostic evaluation of this case. By the signature below, the attending physician certifies that they have personally conducted a gross and/or microscopic examination of the described specimens and rendered or confirmed the above diagnosis. 05/20/2020 10:39 [facility] at 1039 Clinical History Preoperative DX: Pelvic pain Postoperative DX:? Endometriosis 05/20/2020 10:39 [facility] Gross Description A. Received in formalin labelled with proper patient identification (initials M, D) and right ovarian fossa Bx is a single hoskins irregular tissue, 0.3 x 0.2 x 0.1 cm. Entirely submitted in A1. B. Received in formalin labelled with proper patient identification (initials M, D) and left lateral pelvic wall Bx is a hoskins-shahid tissue core, 3.0 x 0.1 by less than 0.1 cm. Bisected and entirely submitted in B1. SHAI SILVER(ASCP) 05/16/2020 10:10 05/20/2020 10:39 [facility] Resident/Doug w: Darin Vieyra, 05/20/2020 10:39 [facility] Performing Lab [facility] 05/20/2020 10:39 [facility] Scanned Images 05/20/2020 10:39 [facility] Tissue [facility] / Unknown 05/15/2020 10:55 EST 05/16/2020 7:08 EST Tissue specimen (specimen) [place] [facility] / Unknown 05/15/2020 10:55 EST 05/16/2020 7:08 EST us Kelley Devi MD PATHOLOGY ORDERABLES F inal Result [facility] [address] [place] [address] documented in this encounter Visit Diagnoses Diagnosis Encounter for other general examination documented in this encounter Care Teams Recycling Assistant Relationship Specialty Start Date End Date Unknown, Provider, PCP - General 05/07/20 documented as of this encounter
--- OUTSIDE RECORDS SUMMARY | 2024-06-06 20:36 | XMS_ITS | Encounter Summary ---
Author Organization [facility] Address [facility] [place] [address] Care Team Providers Care Software Systems Architect Name Role Phone AngelveenaAlisha APRN Primary Care Provider [phone] Reason for Visit * Reason Comments Genetic Evaluation * Consultation (Routine) - Closed Specialty Diagnoses / Procedures Referred By Cl king Referred To Contact Hematology and Oncology Diagnoses Family history of malignant neoplasm of breast Mother and 26 year old sister with breast cancer. Patient states mother is gene-carrier. Procedures genetic counselor referral - Fe Rodriguez CNM [facility] [place] [address] [facility] [address] [place] [address] Referral ID Status Reason Start Date Expiration Date V isits Requested Visits Authorized [id number] Closed Consult, Test & Treat PCP Updated and/or Approved [facility] 05/07/2021 05/07/2022 1 1 Encounter Details Date Type Department Care Team (Late st Contact Info) Description 08/22/2021 10:00 AM EDT Office Visit Hematology [place] [address] Osmani Osoiro V, [facility] Hematology/Oncolog y [place], [place] [id number] Family history of breast cancer; Family history of ovarian cancer; Family history of pancreatic cancer; Family history of colon cancer; Family history of cervical cancer Social History Tobacco Use Types Packs/Day Years Used Date Smoking Tobacco: Never Assessed Sex and Gender Information Value Date Recorded Sex Assigned at Not on file Gender Identity Not on file Sexual Orientation Not on file documented as of this encounter Progress Notes * Osmani Osorio LGC - 08/22/2021 10:00 AM EDT Osiris Lopez was seen by CARI Moreno in consultation at the request of Fe Rodriguez to advise regarding possible heritable predisposition to cancer. I spent 40 minutes of this face to face encounter with the patient gathering medical and family history and discussing the likelihood of a genetic predisposition to cancer and the option of genetic testing. Reason for referral/Chief complaint Family history of multiple cancers. Medical history Cancer hx and treatment: Osiris is an 16yo female with no personal history of cancer. Osiris notes a personal history of abdominal pain due to endometriosis confirmed on biopsy. She states that her current treatment plan will be to start monthly Lupron shots as an alterative to hysterectomy. Osiris also has a personal history of breast lumps, no prior biopsy or breast imaging. Age at 1st menses: 8 Age at 1st child: n/a Menopause status: Premenopausal Oral contraceptive use: 1yr total Hormone replacement therapy use: n/a Family History of Cancer Problem Relation Age of Onset ??? Cervical Cancer Mother 40 ??? Other Sister s/p bilateral mastectomy, benign breast findings ??? Pancreatic Cancer Maternal Grandfather 70 May also have kidney and colon cancer, unclear if add'l primaries or mets ??? Prostate Cancer Paternal Grandfather 60 ??? Ovarian Cancer Paternal Cousin 30 ??? Cervical Cancer Paternal Cousin 31 ??? Colorectal Cancer Maternal Great Uncle 70 ??? Prostate Cancer Maternal Great Uncle 35 ??? Kidney Cancer Maternal Great Uncle 35 ??? Breast Cancer Maternal Great Aunt 30 ??? Skin Cancer Maternal Great Aunt 30 ??? Cervical Cancer Maternal Aunt 40 Maternal ethnic background is [place], [place]. Paternal ethnic background is [place], Iranian [place], . There is no known Ashkenazi Baptist ancestry. There is no known history of prior genetic testing in Osiris's family members. Genetic risk assessment Based on personal and/or family history, the likelihood that Osiris would be found to have a mutation in a cancer predisposition gene is high enough to offer the option of genetic testing. We discussed that Osiris's maternal family history meets testing criteria due to her great aunt with breast cancer at 30. Although her maternal grandfather has pancreatic cancer, current guidelines suggest testing for either affected individuals or 1st-degree relatives. Osiris's paternal family history is also notable for a family history of ovarian cancer in her 1st cousin. We discussed that negative genetic testing in an individual who is not personally affected with cancer is considered an uninformative negative, as it would still be unclear whether or not the family history of cancer is due to a detectable mutation in a cancer risk gene. Reviewed the lifetime cancer risks and medical management recommendations associated with mutationsin the BRCA1 and BRCA2 genes, including high-risk breast cancer screening with mammography and breast MRIs vs prophylactic bilateral mastectomy, as well as prophylactic removal of the ovaries and fall opian tubes (bilateral salpingo-oophorectomy), as well as the recommend timing of these management changes. Panel genetic testing for an inherited predisposition to cancer, including breast and ovarian cancer, was discussed. The risks, benefits and limitations of panel genetic testing were reviewed, specifically a high rate of identifying a variant of uncertain significance, lack of knowledge of cancer risk for newly identified, moderate risk genes included in the panel and lack of effective screening,as well as cancer risk for other cancers not observed in the family. We discussed the Genetic Information Nondiscrimination Act (KURTIS), a federal law prohibiting discrimination by health insurance companies and most employers based on genetic information. KURTIS does not apply to life insurance, disability insurance or long-term care insurance. More information about KURTIS may be found at www.GinaHelp.org. Osiris opted for analysis of the BRCA1 and BRCA2 genes with reflex to [employer]'s Common HereditaryCancers Panel, a next generation sequencing panel that simultaneously analyzes 47 genes that contribute to increased risk for cancer. Osiris was consented. Her blood sample was drawn and sent to [employer]. Testing will take up to 3 weeks. Osiris will be contacted via telephone once her test results become available. If positive, we will offer a follow-up appointment. At that time, we will discuss with Osiris the implications that this test result may have for her, as well as her family members. We will also provide Osiris with screening guidelines for cancer prevention and early detection, aswell as answer any questions she may have. documented in this encounter Plan of Treatment Not on file documented as of this encounter Visit Diagnoses Diagnosis Family history of breast cancer Family history of malignant neoplasm of breast Family history of ovarian cancer Family history of malignant neoplasm of ovary Family history of pancreatic cancer Family history of malignant neoplasm of gastrointestinal tract Family history of colon cancer Family history of malignant neoplasm of gastrointestinal tract Family history of cervical cancer Family history of malignant neoplasm of genital organ, other documented in this encounter Care Teams Software Systems Architect Relationship Specialty Start Date End Date Alisha Early APRN [address] [place] [id number] PCP - General Family Medicine 08/22/21 documented as of this encounter
--- OUTSIDE RECORDS SUMMARY | 2024-06-06 20:36 | XMS_ITS | Encounter Summary ---
Author Organization [facility] Address [address] [place] [address] Care Team Providers Care Liner Checker Name Role Phone Unknown, Provider Primary Care Provider Unava ilable Encounter Details Date Type Department Care Team (Late st Contact Info) Description 06/11/2020 Lab Requisition [facility] Pathology & Laboratory Medicine - [address] [address] Georgi Ramirez MD [address] [place] [address] [id number] Encounter for other general examination Social History [...] Date/Time Associated Diagnosis Comments SURGICAL PATHOLOGY Today 06/10/2020 19 :30 EST documented in this encounter Results * SURGICAL PATHOLOGY (06/10/2020 19:30 EST) Final Diagnosis A. APPENDIX, APPENDECTOMY: - Acute appendicitis. 06/13/2020 15:07 [facility] Attestation By the signature below, the attending physician certifies that they have 1) personally conducted a gross and/or microscopic examination of the described specimen(s), and/or personally interpreted the results of laboratory testing of the described specimen(s), and 2) personally rendered or confirmed the above diagnosis. 06/13/2020 15:07 [facility] at 1507 Clinical History Preoperative DX: Appendicitis Postoperative DX: Same 06/13/2020 15:07 [facility] Gross Description A. Received in formalin labelled with proper patient identification (initials M, D) and appendix is an appendix (6.3 cm in length x 0.7 cm in diameter), with a moderate amount of attached mesoappendix. The proximal margin is stapled. The serosa is hoskins-shahid. The cut surface is hoskins-white. The average wall thickness is 0.2 cm. A perforation site is not identified. The lumen ranges from 0.2 cm to 0.4 cm in diameter. A fecalith is not identified. The proximal margin is inked blue. The section adjacent to the stapled proximal margin and the entire longitudinally bisected distal tip are submitted in A1 and the remainder of the appendix is submitted in A2-A4. SHAI GLYNN(ASCP) 06/12/2020 7:47 06/13/2020 15:07 [facility] Performing Lab [facility] 06/13/2020 15:07 [facility] Scanned Images 06/13/2020 15:07 [facility] Tissue ENTIRE APPENDIX / Unknown 06/10/2020 19:30 EST 06/11/2020 22:20 EST us Georgi Ramirez MD PATHOLOGY ORDERABLES Fin al Result [facility] [address] [place] [address] documented in this encounter Visit Diagnoses Diagnosis Encounter for other general examination documented in this encounter Care Teams Liner Checker Relationship Specialty Start Date End Date Unknown, Provider, PCP - General 05/07/20 documented as of this encounter
--- OUTSIDE RECORDS SUMMARY | 2024-06-06 20:36 | XMS_ITS | Encounter Summary ---
Author Organization [facility] [place] [address] Care Team Providers Care Traction Power Engineer Name Role Phone Tulio Kline MD Primary Care Provider [phone] Encounter Details Date Type Department Care Team (Late st Contact Info) Description 07/23/2021 Telephone [facility] at [address] [address] Alice Tony LGC Social History Tobacco Use Types Packs/Day Years Used Date Smoking Tobacco: Never Assessed Sex and Gender Information Value Date Recorded Sex Assigned at Not on file Gender Identity Not on file Sexual Orientation Not on file documented as of this encounter Miscellaneous Notes * Telephone Encounter - Alice Tony LGC - 07/23/2021 3:09 PM EST Contacted patient to discuss family history and referral for genetic counseling. Referral stated that mother and sister have a gene mutation; however, family history forms filled out by patient did not indicate that any genetic testing has been completed for any relatives. To clarify, I contacted Osiris today. Osiris informs me that her sister (who lives across the street from her) has a breast mass. Osiris is unsure if this mass is cancerous, but states her sister is having a bilateral mastectomy in 11 days. Osiris is unsure at which hospital this is being performed ( vs [facility] or other). Osiris confirmed that no relatives have had genetic testing. I informed Osiris that if her sister truly has breast cancer at age 25, she is the one who needs genetic testing. Her testing would then inform whether unaffected relatives, like Osiris, should be tested. Osiris claims that her sister will not be tested due to cost, though reports her sister has health insurance through her job. I strongly encouraged Osiris to talk to her sister to gather more information and suggest that she be tested first, if cancer is confirmed. Osiris wishes to keep her genetic counseling appointment. documented in this encounter Plan of Treatment Not on file documented as of this encounter Visit Diagnoses Not on filedocumented in this encounter Care Teams Traction Power Engineer Relationship Specialty Start Date End Date Tulio Kline MD [address] [place] [id number] PCP - General General Internal Medicine 05/12/2108/05 documented as of this encounter
--- OUTSIDE RECORDS SUMMARY | 2024-06-06 20:36 | XMS_ITS | Continuity of Care Document ---
Author Organization [facility] Address [address] [place] [address] Care Team Providers Care Scientific Helper Name Role Phone Alisha Early Chilo Primary Care Physician Encounter [facility] Date(s): 03/16/24 - 03/16/24 [facility] [address] [place] [address] us Encounter Diagnosis Accidental drug [...] [20.0-50.0 %] 29.9 % (03/16/24 8:15 PM) Ware Auto [2.0-15.0 %] 6.5 % (03/16/24 8:15 [...] DVT (3 mos) PE (3-6 mos) TIA (intermediate) Atr Fib (surgery attendant) Syst. emb post SC Mitral Stenosis with emboli (surgery attendant) Tissue prosthetic valves (3 mos min) INR 3-4.5 Therapy: recurrent DVT, PE (intermediate) Prosthetic heart valves (surgery attendant) Vital Signs Most recent to oldest [Reference [...] a substance, such asa prescription medicine, an nnmw-stz-angvxrw medicine, a vitamin, a supplement, or an [...] Heroin. ??? Multivitamins that contain iron. ??? Xfxo-awq-kfcdayp cold and cough medicines. What increases the [...] these instructions at home: Medicines ??? Take lbie-jag-wxddadg and prescription medicines only as told by your health care provider. ??? Before taking a new medicine, ask your health care provider whether the medicine: ??? May cause side effects. ??? Might react with other medicines. ??? Keep a list of all the medicines that you take, including zesr-raw-mggrwqm medicines, vitamins,supplements, and herbs. Bring this list [...] your mobile phone. The hotline of the [employer] is . [...] substance, such as a prescription medicine, an ntxn-jfe-gyiydof medicine, a vitamin, a supplement, or an [...] provider. Document Revised: 01/15/2022 Document Reviewed: 01/15/2022 [employer] Patient Education ?? 2022 [employer] Follow Up Care 03/16/2024 20:54:28 With:Alisha Early NP Address: [address] [place] [address]- When:1 week Emergency department Discharge instructions * Tenzin Hughes MD: PERFORM, MODIFY Event Display: ED Discharge Information Authored Date: [id number] JOSE CHANG :2005 Age:18 years Sex:Female Visit Date:03/16/2024 Primary Care Physician: Chute, Alisha H REVENUE CYCLE MANAGER Discharge Instructions We would like to thank [...] the Following Appointments Follow Up with??Alisha Early REVENUE CYCLE MANAGER When:??Within 1 week Where: [address] [place] [id number]- Upcoming Scheduled Appointments Wednesday 1:00 PM EDT ?? With: Ashli MORGAN, Anthony Mcgovern MD Where: [facility] [address] [place] [address], [address] [place] [address] Status: Confirmed You were treated [...] a substance, such asa prescription medicine, an izcx-hbv-ogmcwxc medicine, a vitamin, a supplement, or an [...] Heroin. ? Multivitamins that contain iron. ? Yyes-stg-bsmncnh cold and cough medicines. What increases the [...] these instructions at home: Medicines ? Take klgm-dqc-sorzgmz and prescription medicines only as told by your health care provider. ? Before taking a new medicine, ask your health care provider whether the medicine: ? May cause side effects. ? Might react with other medicines. ? Keep a list of all the medicines that you take, including ityp-gjt-uuxbzej medicines, vitamins, supplements, and herbs. Bring this [...] your mobile phone. The hotline of the [place] is . [...] a substance, such asa prescription medicine, an wiau-khj-mfkorom medicine, a vitamin, a supplement, or an [...] provider. Document Revised: 01/15/2022 Document Reviewed: 01/15/2022 [employer] Patient Education ?? 2022 [employer]. Tests [...] Lymph Auto 29.9 % 03/16/2024 20:15 EDT Ware Auto 6.5 % 03/16/2024 20:15 EDT Eos, [...] Acetaminophen Level <0.5 ug/mL 03/16/2024 20:15 EDT Patient/Revenue Investigator Signature Patient Name:BERNARDO JOSE [place] I have received this information and my questions have been answered. Patient/Revenue Investigator Name: Patient/Revenue Investigator Signature: Relationship to Patient: Witness Name/Signature: Date: Electronically Signed on: 03/16/2024 22:24 EDTSigned by:ADDY Patient Care team information Care Team Personnel Name: Alisha Early REVENUE CYCLE MANAGER Position: PowerChart View Only Member Role: Informed Provider Address: [address] [place] [address]- Care Team Related Persons Name: SAVANNA CHANG Name: SAVANNA CHANG
--- OUTSIDE RECORDS SUMMARY | 2024-06-06 20:36 | XMS_ITS | Clinical Summary ---
[place] [address] Care Team Providers Care Microbiology Quality Control Technician Name Role Phone Alisha Early Chilo DENT Primary Care Provider [phone] Family History Medical History Relation Comments Cervical Cancer Maternal Aunt Pancreatic Cancer Maternal Grandfather May also have kidney and colon cancer, unclear if add'l primaries or mets Cervical Cancer Mother Colorectal Cancer Other 1 Kidney Cancer Other 2 Prostate Cancer Other 2 Breast Cancer Other 3 Skin Cancer Other 3 Ovarian Cancer Paternal Cousin 1 Cervical Cancer Paternal Cousin 2 Prostate Cancer Paternal Grandfather Other Sister s/p bilateral ma stectomy, benign breast findings Relation Status Comments Father Alive Maternal Aunt Alive Maternal Grandfather Alive Maternal Grandmother Alive Mother Alive Other 1 Other 2 Other 3 Alive Paternal Cousin 1 Alive Paternal Cousin 2 Alive Paternal Grandfather Paternal Grandmother Alive Sister Alive Social History Tobacco Use Types Packs/Day Years Used Date Smoking Tobacco: Never Assessed Sex and Gender Information Value Date Recorded Sex Assigned at Not on file Gender Identity Not on file Sexual Orientation Not on file Plan of Treatment Health Maintenance Due Date Last Done Comments Chlamydia Screening 08/18/2018 HPV vaccine (1 - 3-dose series) 08/18/2018 HIV screen 08/18/2021 Hepatitis C Screening 08/18/2021 Hepatitis B vaccine (0-59 yrs) (1) 08/18/2022 Tetanus/Diphtheria/Pertussis Vaccines (1 - Tdap) 08/18 Covid-19 Vaccine (1 - 2023-25 season) 2024 Influenza (Flu) vaccine (1 o f 1 - Influenza standard series) 02/06/2024 Advance Directives Documents on File Type Date Recorded Patient Car Conditioner Expl anation Personal Car Conditioner 08/26/2021 2:32 PM batool lopez Care Teams Microbiology Quality Control Technician Relationship Specialty Start Date End Date Alisha Early APRN [address] [place] [address] PCP - General Family Medicine 08/22/21
--- OUTSIDE RECORDS SUMMARY | 2024-06-06 20:36 | XMS_ITS | Encounter Summary ---
Author Organization [facility] Address [address] [place] [address] Care Team Providers Care Highway Worker Name Role Phone Unknown, Provider Primary Care Provider Gina ilal Encounter Details Date Type Department Care Team (Late st Contact Info) Description 12/12/2019 Lab Requisition [facility] Pathology & Laboratory Medicine - [facility] [address], [place] [id number] Outr Resulting Lab, Provider Social History Tobacco Use Types Packs/Day Years [...] Procedure Name Priority Date/Time Associated Diagnosis Comments DO NOT ORDER STANDALONE - [facility] COVID TEST Today 12/12/2019 13:00 EDT COVID-19 TESTING Routine 12/12/2019 13:0 0 EDT documented in this encounter Results * DO NOT ORDER STANDALONE - [facility] COVID TEST (12/12/2019 13:00 EDT) COVID-19 rt-PCR Result NEGATIVE Negative 12/14/2019 15:09 EDT [facility] Comment: 2019-novel Coronavirus (2019-nCoV) not detected by the qRT-PCR assay. Consider testing for other respiratory viruses or re-collecting for 2019-nCoV testing. Note: Optimum timing for peak viral levels during infections caused by 2019-nCoV have not been determined. Collection of multiple specimens from the same patient may be necessary to detect the virus. Limitations Positive results are indicative of active infection with SARS-CoV-2 but do not rule out bacterial infection or co-infection with other viruses. The agent detected may not be the definite cause of disease. In addition, detection of viral RNA may not indicate the presence of infectious virus or that SARS-CoV-2 is the causative agent for clinical symptoms. Negative results do not preclude SARS-CoV-2 infection and should not be used as the sole basis for patient management decisions. Negative results must be combined with clinical observations, patient history, and epidemiological information. False negative results may also occur if amplification inhibitors are present in the specimen or if inadequate numbers of organisms are present in the specimen. Optimum specimen types and timing for peak viral levels during infections caused by SARS-CoV-2 have not been fully determined. Collection of multiple specimens (types and time points) from the same patient may be necessary to detect the virus. The test was validated for use with upper respiratory specimens obtained via nasopharyngeal or oropharyngeal swabs in VTM, UTM, M4, M5, M6, saline, and MTM media. The performance of this test has not been established for other specimens. Specimens collected using other FDA recommended Specimen Collection Materials listed in the FDA COVID-19 Diagnostic Technologies communication (August 31, 2019) are processed with the caveat that they were not all validated for use with this test and the result must be interpreted in this context. Furthermore, a false negative results may occur if a specimen is improperly collected, transported or handled. If the virus mutates in the RT-PCR target region, SARS-CoV-2 may not be detected or may be detected less predictably. Inhibitors or other types of interference may produce a false negative result. An interference study evaluating the effect of common cold medications was not performed. This test is not FDA-cleared but its performance characteristics were established by our CLIA-certified, CAP-accredited, high complexity laboratory in accordance with CLIA regulations, College [employer] (CAP) guidelines (Aug 24, 2019), and FDA guidance (Aug 05, 2019). This test is only for use under the Food and Drug Administration's Emergency Use Authorization. Swab ENTIRE NASOPHARYNX / Unknown 12/12/2019 13:00 EDT 12/12/2019 21:44 EDT us Provider Outr Resulting Lab MICROBIOLOGY - GENER AL ORDERABLES Final Result [facility] [place], [place] * COVID-19 TESTING (12/12/2019 13:00 EDT) COVID-19 rt-PCR Result NEGATIVE Negative 12/14/2019 17:24 EDT [facility] Comment: 2019-novel Coronavirus (2019-nCoV) not detected by the qRT-PCR assay. Consider testing for other respiratory viruses or re-collecting for 2019-nCoV testing. Note: Optimum timing for peak viral levels during infections caused by 2019-nCoV have not been determined. Collection of multiple specimens from the same patient may be necessary to detect the virus. Limitations Positive results are indicative of active infection with SARS-CoV-2 but do not rule out bacterial infection or co-infection with other viruses. The agent detected may not be the definite cause of disease. In addition, detection of viral RNA may not indicate the presence of infectious virus or that SARS-CoV-2 is the causative agent for clinical symptoms. Negative results do not preclude SARS-CoV-2 infection and should not be used as the sole basis for patient management decisions. Negative results must be combined with clinical observations, patient history, and epidemiological information. False negative results may also occur if amplification inhibitors are present in the specimen or if inadequate numbers of organisms are present in the specimen. Optimum specimen types and timing for peak viral levels during infections caused by SARS-CoV-2 have not been fully determined. Collection of multiple specimens (types and time points) from the same patient may be necessary to detect the virus. The test was validated for use with upper respiratory specimens obtained via nasopharyngeal or oropharyngeal swabs in VTM, UTM, M4, M5, M6, saline, and MTM media. The performance of this test has not been established for other specimens. Specimens collected using other FDA recommended Specimen Collection Materials listed in the FDA COVID-19 [employer] communication (August 31, 2019) are processed with the caveat that they were not all validated for use with this test and the result must be interpreted in this context. Furthermore, a false negative results may occur if a specimen is improperly collected, transported or handled. If the virus mutates in the RT-PCR target region, SARS-CoV-2 may not be detected or may be detected less predictably. Inhibitors or other types of interference may produce a false negative result. An interference study evaluating the effect of common cold medications was not performed. This test is not FDA-cleared but its performance characteristics were established by our CLIA-certified, CAP-accredited, high complexity laboratory in accordance with CLIA regulations, College of [employer]ologists (CAP) guidelines (Aug 24, 2019), and FDA guidance (Aug 05, 2019). This test is only for use under the Food and Drug Administration's Emergency Use Authorization. Performing Lab [facility] [place] 12/14/2019 17:24 EDT [facility] Swab 12/12/2019 13:0 0 EDT 12/12/2019 21:44 EDT us Provider Outr Resulting Lab MICROBIOLOGY - GENER AL ORDERABLES Final Result [facility] [address] [place] [address] [facility] [place], [place] documented in this encounter Visit Diagnoses Not on filedocumented in this encounter Additional Health Concerns Infection Onset Date Last Indicated Resolved Time R/O COVID-19 12/12/2019 12/12/2019 12/17/2019 22:1 7 EDT documented as of this encounter Care Teams Highway Worker Relationship Specialty Start Date End Date Unknown, Provider, PCP - General 05/07/20 documented as of this encounter
--- OUTSIDE RECORDS SUMMARY | 2024-06-06 20:36 | XMS_ITS | Encounter Summary ---
Author Organization [facility] [place] [address] Care Team Providers Care Red Mud Thickener Operator Name Role Phone Alisha Early APRN Primary Care Provider [phone]- [phone] Reason for Visit * Reason Onset Date Comments Results 09/10/2021 Encounter Details Date Type Department Care Team (Late st Contact Info) Description 09/10/2021 Telephone [place]ology [place] [address] Osmani Osorio V [facility] Dr Hematology/[place] [address] Results Social History Tobacco Use Types Packs/Day Years Used Date Smoking Tobacco: Never Assessed Sex and Gender Information Value Date Recorded Sex Assigned at Not on file Gender Identity Not on file Sexual Orientation Not on file documented as of this encounter Miscellaneous Notes * Telephone Encounter - Osmani Osorio V [facility] - 09/10/2021 3:53 PM EDT This test result was discussed with the patient by phone. A copy of the test results have been scanned in the medical record and sent to Osiris. A summary of the results is provided below. Please be advised that [place] law requires that all health care workers respect the confidentiality of this information and not pass it along to other health care providers, insurance companies, or individuals without the written permission of the patient. The Familial Cancer Program welcomes any questions about these matters. Our phone number is: [phone]. On 08/22/2021 Osiris was seen for genetic counseling and subsequently underwent genetic testing for a hereditary predisposition to common hereditary cancers, including breast, gynecologic and gastrointestinal. Following are the results of this test. Result: [facility]'s Common Hereditary Cancers Panel showed no mutation was detected. This means that Carmelita not carry a mutation in the genes detectable by this test. The following 47 genes were evaluated for sequence changes and exonic deletions/duplications: APC, LESTER, AXIN2, BARD1, BMPR1A, BRCA1, BRCA2, BRIP1, CDH1, CDK4, CDKN2A (p14ARF), CDKN2A ([id number]), CHEK2, CTNNA1, DICER1, EPCAM (EPCAM: Deletion/duplication testing only ([id number]), GREM1 (GREM1: Promoter region deletion/duplication testing only.),HOXB13, KIT, MEN1, MLH1, MSH2, MSH3, MSH6, MUTYH, NBN, NF1, NTHL1, PALB2, PDGFRA, PMS2, POLD1, POLE, PTEN, RAD50, RAD51C, RAD51D, SDHB, SDHC, SDHD, SMAD4, SMARCA4, STK11, TP53, TSC1, TSC2,VHL. The following gene was evaluated for sequence changes only: SDHA. Interpretation: This test did not identify an underlying genetic cause for the family history of breast, ovarian, colon, or pancreatic cancers. Possible explanations for this uninformative negative test result include: ?? The cancer in Osiris's family may be due to non genetic, environmental causes. ?? There could be a mutation in Osiris's family that Osiris did not inherit. ?? Family members with a personal history of cancer, or relatives more closely related to the family history of cancer, could still have inherited a mutation associated with increased cancer risks and could consider testing. ?? There could be mutations in other cancer genes not included in this test, or in genes yet to be discovered. ?? There is a very small chance that a pathogenic variant/mutation could be missed due to limitations in the testing. Additional genetic testing for Osiris is not recommended at this time. Screening Recommendations Osiris may still have an elevated cancer risk based on her family history of multiple cancers. She should consult with her primary care provider regarding age-specific screening recommendations, taking family history into account. documented in this encounter Plan of Treatment Not on file documented as of this encounter Visit Diagnoses Not on filedocumented in this encounter Care Teams Red Mud Thickener Operator Relationship Specialty Start Date End Date Alisha Early APRN [address] [place] [id number] PCP - General Family Medicine 08/22/21 documented as of this encounter
--- OUTSIDE RECORDS SUMMARY | 2024-06-06 20:36 | XMS_ITS | Encounter Summary ---
[place] [address] Care Team Providers Care Roller Shop Supervisor Name Role Phone Alisha Early CANDY BUTCHER Primary Care Provider [phone]- [phone] Encounter Details Date Type Department Care Team (Latest Contact Info) Description 08/22/2021 11:06 AM EDT - 08/22/2021 11:59 PM EDT Hospital Encounter Hematology [place] [address] Family history of breast cancer; Family history of colon cancer; Family history of ovarian cancer; Family history of pancreatic cancer; Family history of prostate cancer Discharge Disposition: Home Social History Tobacco Use Types Packs/Day Years Used Date Smoking Tobacco: Never Assessed Sex and Gender Information Value Date Recorded Sex Assigned at Not on file Gender Identity Not on file Sexual Orientation Not on file documented as of this encounter Plan of Treatment Not on file documented as of this encounter Procedures Procedure Name Priority Date/Time Associated Diagnosis Comments RESEARCH VENIPUNCTURE Routine 08/22/2021 11:35 AM EDT Family history of breast cancer Family history of colon cancer Family history of ovarian cancer Family history of pancreatic cancer Family history of prostate cancer documented in this encounter Results * Research Venipuncture (08/22/2021 11:35 AM EDT) Research Venipuncture [facility] Blood 08/22/2021 11:3 5 AM EDT 08/22/2021 11:45 AM EDT Narrative Resulting Agency Comment Spec In Lab Krystian Andrea MD CHEMISTRY ORDERABLES [facility] [place] [address] documented in this encounter Visit Diagnoses Diagnosis Family history of breast cancer Family history of malignant neoplasm of breast Family history of colon cancer Family history of malignant neoplasm of gastrointestinal tract Family history of ovarian cancer Family history of malignant neoplasm of ovary Family history of pancreatic cancer Family history of malignant neoplasm of gastrointestinal tract Family history of prostate cancer Family history of malignant neoplasm of prostate documented in this encounter Care Teams Roller Shop Supervisor Relationship Specialty Start Date End Date Alisha Early APRN [address] [place] [id number] PCP - General Family Medicine 08/22/21 documented as of this encounter
--- OUTSIDE RECORDS SUMMARY | 2024-06-06 20:36 | XMS_ITS | Encounter Summary ---
Author Organization [place] [address] Care Team Providers Care Stitch Wheeler Name Role Phone Tulio Kline MD Primary Care Provider Encounter Details Date Type Department Care Team (Late st Contact Info) Description 08/16/2021 Telephone Hematology [place] [address] Krystian Andrea MD Social History Tobacco Use Types Packs/Day Years Used Date Smoking Tobacco: Never Assessed Sex and Gender Information Value Date Recorded Sex Assigned at Not on file Gender Identity Not on file Sexual Orientation Not on file documented as of this encounter Miscellaneous Notes * Telephone Encounter - Krystian Andrea MD - 08/16/2021 4:56 PM EST Heme-Onc Staff I have reviewed the patient's record and, given personal and/or family history of cancer she shouldbe seen by a genetic counselor. This is scheduled for next week. Krystian Andrea MD carbon brusher assembler in Hematology-Oncology documented in this encounter Plan of Treatment Not on file documented as of this encounter Visit Diagnoses Not on filedocumented in this encounter Care Teams Stitch Wheeler Relationship Specialty Start Date End Date Tulio Kline MD [address] [place] [address] PCP - General General Internal Medicine 05/12/2108/05 documented as of this encounter
--- OUTSIDE RECORDS SUMMARY | 2024-06-06 20:36 | XMS_ITS | Continuity of Care Document ---
Author Organization [facility] Address [address] [place] [address] Care Team Providers Care Campaign Management Senior Manager Name Role Phone Angelveena Alisha Chilo Primary Care Physician [facility] 04/[facility]/24 - 04/09/[address] [address] [place] Discharge Disposition: Home or [...] Event Display: ED Note Physician Authored Date: [id number] JOSE CHANG :2005 Age:18 years Sex:Female Visit [...] complexity is low. ??Management risk are low.?? [facility] [address]262 Procedure No Qualifying Data Assessment/Plan Ordered: Crutches, [...] Event Display: ED Discharge Information Authored Date: [id number] JOSE CHANG :2005 Age:18 years Sex:Female Visit Date:04/09/2024 Primary Care Physician: Alisha Early DIGITAL PROGRAM MANAGER Discharge Instructions We would like to [...] see the doctor, contact the Emergency Department. Patient/Sign Language Instructor Signature Patient Name:FRANSISCOARMANIJOSE Nancie I have received this information and my questions have been answered. Patient/Sign Language Instructor Name: Patient/Sign Language Instructor Signature: Relationship to Patient: Witness Name/Signature: Date: Electronically Signed on: 04/09/2024 15:16 ESTSigned by:[facility] Patient Care team information Care Team Personnel Name: Alisha Early DIGITAL PROGRAM MANAGER Position: PowerChart View Only Member Role: Informed Provider Address: [address] [place] [address] Care Team Related Persons Name: SAVANNA CHANG Name: SAVANNA CHANG
--- OUTSIDE RECORDS SUMMARY | 2024-06-06 20:36 | XMS_ITS | Encounter Summary ---
Author Organization [facility] [place] [address] Care Team Providers Care Carpenter Supervisor Wooden Ship Name Role Phone Alisha Early APRN Primary Care Provider +1- [phone] Encounter Details Date Type Department Care Team (Late st Contact Info) Description 08/22/2021 Orders Only Hematology [place] [address] [facility] [address] Family history of breast cancer; Family history of colon cancer; Family history of ovarian cancer; Family history of pancreatic cancer; Family history of prostate cancer Social History Tobacco Use Types Packs/Day Years Used Date Smoking Tobacco: Never Assessed Sex and Gender Information Value Date Recorded Sex Assigned at Not on file Gender Identity Not on file Sexual Orientation Not on file documented as of this encounter Plan of Treatment Not on file documented as of this encounter Results * Research Venipuncture (08/22/2021 11:35 AM EDT) Research Venipuncture Drawn [facility] Blood 08/22/2021 11:3 5 AM EDT 08/22/2021 11:45 AM EDT Narrative Resulting Agency Comment Spec In Lab Krystian Andrea MD CHEMISTRY [place] [address] documented in this encounter Visit Diagnoses Diagnosis [...] prostate documented in this encounter Care Teams Carpenter Supervisor Wooden Ship Relationship Specialty Start Date End Date Alisha Early APRN [address] [place] [id number] PCP - General Family Medicine 08/22/21 documented as of this encounter
--- OUTSIDE RECORDS SUMMARY | 2024-06-06 20:36 | XMS_ITS | Continuity of Care Document ---
Author Organization [facility] Address [address] [place] [address] Care Team Providers Care Shaker Out Name Role Phone Alisha Early Chilo Primary Care Physician Encounter [facility] Date(s): 02/21/24 - 02/21/[address] [phone] [place] Encounter Diagnosis Abdominal pain(Discharge [...] dyes Unable to assess criticality Unknown Active aspirin Unable to assess criticality Unknown Eruption Active iodine topical High criticality Moderate Skin [...] for her to be seen by the DELIVERY DEPARTMENT SUPERVISOR??office within the next week.?Patient reports that she [...] collect, Collected, 02/21/24 17:03:33 EDT, Print Label, [id number] Patient Education Abdominal Pain, Adult Follow Up With When Contact Information Alisha Early MASTER CERTIFIED RV TECHNICIAN Within 1 month [address] [place] [address]- ?? Additional Instructions: Future Appointments Immunizations Given [...] [20.0-50.0 %] 22.6 % (02/21/24 3:12 PM) [facility] [2.0-15.0 %] 6.4 % (02/21/24 3:12 [...] (02/21/24 3:12 PM) 1Interpretive Data: Effective 03/26/22, [facility] has switched to a revised Lipase test.Note [...] these instructions at home: Medicines ??? Take dxeg-ibw-wdhsdmj and prescription medicines only as told by [...] your condition for any changes. ??? Take atbl-pga-irjajfx and prescription medicines only as told by [...] provider. Document Revised: 07/12/2020 Document Reviewed: 10/02/2019 [employer] Patient Education ?? 2022 [employer]. Follow Up Care 02/21/2024 14:54:44 With:Alisha Early NP Address: [address] [place] [address]- When:1 month Physician Emergency department Note * An Ace MD: PERFORM Event Display: ED Note Physician Authored Date: [id number] JOSE CHANG :2005 Age:18 years Sex:Female Visit [...] for her to be seen by the DELIVERY DEPARTMENT SUPERVISOR??office within the next week.?Patient reports that she [...] collect, Collected, 02/21/24 17:03:33 EDT, Print Label, [id number] Patient Education Abdominal Pain, Adult Follow Up With When Contact Information Alisha Early MASTER CERTIFIED RV TECHNICIAN Within [address] [place] [address]- Additional Instructions: Problem List/Past Medical History [...] 15:12?? 67.9?? Lymph Auto?? 02/21/24 15:12?? 22.6?? Monroe [employer]?? 02/21/24 15:12?? 6.4?? Eos, Auto?? 02/21/24 [...] Event Display: ED Discharge Information Authored Date: [id number] JOSE CHANG :2005 Age:18 years Sex:Female Visit Date:02/21/2024 Primary Care Physician: Alisha Early MASTER CERTIFIED RV TECHNICIAN Discharge Instructions We would like to thank [...] Do Next Instructions from Your Care Team DELIVERY DEPARTMENT SUPERVISOR will call you with a follow-up appointment.?? If you do not hear from them call [phone]??to schedule a follow-up.?? You may take up [...] to the emergency department or see your DELIVERY DEPARTMENT SUPERVISOR or primary care provider sooner. You Need to Schedule the Following Appointments Follow Up with??Alisha Early NP When:??Within 1 month Where: [address] [place] [address]- Upcoming Scheduled Appointments 2023 1:45 PM EDT ?? With: Ashli [facility], Anthony Mcgovern MD Where: [facility] [address] [place] [address], [address] [place] [address] Status: Confirmed You were treated [...] these instructions at home: Medicines ? Take rjdv-kgp-zedpwym and prescription medicines only as told by [...] your condition for any changes. ? Take tsur-nht-fvwlbbb and prescription medicines only as told by [...] Lymph Auto 22.6 % 02/21/2024 15:12 EDT [facility] [employer] 6.4 % 02/21/2024 15:12 EDT Eos, [...] EDT UA Bacteria Rare 02/21/2024 17:03 EDT Patient/Claims Analyst Signature Patient Name:BERNARDO JOSE [place] I have received this information and my questions have been answered. Patient/Claims Analyst Name: Patient/Claims Analyst Signature: Relationship to Patient: Witness Name/Signature: Date: Electronically Signed on: 02/21/2024 18:07 EDTSigned by:[facility] Patient Care team information Care Team Personnel Name: Alisha Early NP Position: PowerChart View Only Member Role: Informed Provider Address: [address] [place] [address] Care Team Related Persons Name: SAVANNA CHANG Name: SAVANNA CHANG
[2024-06-06 21:05] LABS: Bilirubin Negative (Negative); Blood Moderate (Negative); Clarity Sl Cloudy (Clear); Glucose Negative (Negative); Ketones Negative (Negative); Leukocyte Esterase Large (Negative); Nitrite Positive (Negative); Specific Gravity <= 1.005 (1.005-1.025); Urobilinogen 0.2 mg/dL (Up to 0.2)
[2024-06-06 21:19] LABS: Bacteria Moderate HPF (Negative); Crystals Negative HPF (Negative); Epithelial Cells Few HPF (Negative); Mucus Negative (Negative); WBC 20-50 HPF (0-5)
[2024-06-06 21:20] LABS: C & S Indicated? Yes; Casts Negative LPF (Negative)
== END 2024-06-06 20:35 | disposition home or self-care (01) ==
LOC: NCHCN 20:34
PROVIDERS: PCP Internal Medicine; Visit Provider Nurse Practitioner Family
DX: R30.0 Dysuria (principal); R82.89 Other abnormal findings on cytological and histological examination of urine
CPT/HCPCS: 81003; 81015; 87086

== ENCOUNTER 2024-06-13 17:08 | Outpatient (REF) | payer BC, SELFPAY ==
--- OUTSIDE RECORDS SUMMARY | 2024-06-13 17:10 | XMS_ITS | Encounter Summary ---
Author Organization [facility] [place] [address] Care Team Providers Care Telephoner Name Role Phone Alisha Early APRN Primary Care Provider +1- [phone] Encounter Details Date Type Department Care Team (Late st Contact Info) Description 08/22/2021 Orders Only Hematology [place] [address] Osmani Osorio V, [facility] Hematology/[place] [address] Family history of breast cancer; Family history [...] (08/22/2021 11:35 AM EDT) Research Venipuncture Drawn [facility] Blood 08/22/2021 11:3 5 AM EDT 08/22/2021 11:45 AM EDT Narrative Resulting Agency Comment Spec In Lab Krystian Andrea MD CHEMISTRY ORDERAB[place] [address] documented in this encounter Visit Diagnoses Diagnosis [...] prostate documented in this encounter Care Teams Telephoner Relationship Specialty Start Date End Date Alisha Early APRN [address] [place] [address] PCP - General Family Medicine 08/22/21 documented as of this encounter
--- OUTSIDE RECORDS SUMMARY | 2024-06-13 17:10 | XMS_ITS | Clinical Summary ---
[place] [address] Care Team Providers Care Director Online Marketing Name Role Phone Alisha Early Chilo DENT Primary Care Provider +1- [phone] Family History Medical History Relation Comments Cervical [...] Documents on File Type Date Recorded Patient Commercial Ocean Clammer Expl anation Personal Commercial Ocean Clammer 08/26/2021 2:32 PM batool lopez Care Teams Director Online Marketing Relationship Specialty Start Date End Date Alisha Early APRN [address] [place] [address] PCP - General Family Medicine 08/22/21
--- OUTSIDE RECORDS SUMMARY | 2024-06-13 17:10 | XMS_ITS | Encounter Summary ---
Author Organization [facility] [place] [address] Care Team Providers Care Weapons Officer Naval Activity Name Role Phone Tulio Kline MD Primary Care Provider [phone] Encounter Details Date Type Department Care Team (Late st Contact Info) Description 07/23/2021 Telephone [facility] at [address] [address] Alice Tony LGC Social History [...] hospital this is being performed ( vs [facility] or other). Osiris confirmed that [...] insurance through her job. I strongly encouraged Osriis to talk to her sister to gather more information and suggest that she be tested first, if cancer is confirmed. Osiris wishes to keep her genetic counseling appointment. documented in this encounter Plan of Treatment Not on file documented as of this encounter Visit Diagnoses Not on filedocumented in this encounter Care Teams Weapons Officer Naval Activity Relationship Specialty Start Date End Date Tulio Kline MD [address] [place] [address] PCP - General General Internal Medicine 05/12/2108/05 documented as of this encounter
--- OUTSIDE RECORDS SUMMARY | 2024-06-13 17:10 | XMS_ITS | Referral Summary ---
Author Organization [facility] Address [address] [place] [address] Care Team Providers Care Supersonic Engineer Name Role Phone Unknown, Provider Primary Care [...] Plan of Treatment Not on file Insurance [facility] Care Teams Supersonic Engineer Relationship Specialty Start Date End Date Unknown, Provider, PCP - General 05/07/20
--- OUTSIDE RECORDS SUMMARY | 2024-06-13 17:10 | XMS_ITS | Clinical Summary ---
Author Organization [facility] Address [address] [place] [address] Care Team Providers Care Marriage Performer Name Role Phone Unknown, Provider Primary Care [...] 08/18 COVID-19 Vaccine (2023- season) 2024 Insurance [facility] Care Teams Marriage Performer Relationship Specialty Start Date End Date Unknown, Provider, PCP - General 05/07/20
--- OUTSIDE RECORDS SUMMARY | 2024-06-13 17:10 | XMS_ITS | Encounter Summary ---
Author Organization [facility] Address [facility] [place] [address] Care Team Providers Care Security System Sales Consultant Name Role Phone AngelveenaAlisha APRN Primary Care Provider +1- [phone] Reason for Visit * Reason Comments Genetic Evaluation * Consultation (Routine) - Closed Specialty Diagnoses / Procedures Referred By Cl king Referred To Contact Hematology and Oncology Diagnoses Family history of malignant neoplasm of breast Mother and 26 year old sister with breast cancer. Patient states mother is gene-carrier. Procedures genetic counselor referral - Fe Rodriguez CNM [facility] [place] [address] [facility] [address] [place] [address] Referral ID Status Reason Start Date Expiration Date V isits Requested Visits Authorized [id number] Closed Consult, Test & Treat PCP Updated and/or Approved [facility] 05/07/2021 05/07/2022 1 1 Encounter Details Date Type Department Care Team (Late st Contact Info) Description 08/22/2021 10:00 AM EDT Office Visit [place] [address] Osmani Osorio V, [facility] Hematology/Oncolog y [place], [place] [id number] Family history of breast cancer; Family history [...] Maternal Aunt 40 Maternal ethnic background is [place] Citizen, Micronesian. Paternal ethnic background is [place] Citizen, Irish Guamanian, . There is no known Ashkenazi Christianity ancestry. There is no known history of [...] BRCA1 and BRCA2 genes with reflex to [facility]'s Common HereditaryCancers Panel, a next generation sequencing panel that simultaneously analyzes 47 genes that contribute to increased risk for cancer. Osiris was consented. Her blood sample was drawn and sent to [facility]. Testing will take up to 3 weeks. [...] other documented in this encounter Care Teams Security System Sales Consultant Relationship Specialty Start Date End Date Alisha Early APRN [address] [place] [address] PCP - General Family Medicine 08/22/21 documented as of this encounter
--- OUTSIDE RECORDS SUMMARY | 2024-06-13 17:10 | XMS_ITS | Encounter Summary ---
Author Organization [facility] Address [address] [place] [address] Care Team Providers Care Basting Marker Name Role Phone Unknown, Provider Primary Care Provider Unava ilable Encounter Details Date Type Department Care Team (Late st Contact Info) Description 06/11/2020 Lab Requisition [facility] Pathology & Laboratory Medicine - [address] [address] Georgi Ramirez MD [address] [place] [id number] Encounter for other general examination Social History [...] APPENDIX, APPENDECTOMY: - Acute appendicitis. 06/13/2020 15:07 [facility] Attestation By the signature below, the attending physician certifies that they have 1) personally conducted a gross and/or microscopic examination of the described specimen(s), and/or personally interpreted the results of laboratory testing of the described specimen(s), and 2) personally rendered or confirmed the above diagnosis. 06/13/2020 15:07 [facility] at 1507 Clinical History Preoperative DX: Appendicitis Postoperative DX: Same 06/13/2020 15:07 [facility] Gross Description A. Received in [...] A2-A4. SHAI GLYNN(ASCP) 06/12/2020 7:47 06/13/2020 15:07 [facility] Performing Lab [facility] 06/13/2020 15:07 [facility] Scanned Images 06/13/2020 15:07 [facility] Tissue ENTIRE APPENDIX / Unknown 06/10/2020 19:30 EST 06/11/2020 22:20 EST us Georgi Ramirez MD PATHOLOGY ORDERABLES Fin al Result [facility] [address] [place] [address] documented in this encounter Visit Diagnoses Diagnosis Encounter for other general examination documented in this encounter Care Teams Basting Marker Relationship Specialty Start Date End Date Unknown, Provider, PCP - General 05/07/20 documented as of this encounter
--- OUTSIDE RECORDS SUMMARY | 2024-06-13 17:10 | XMS_ITS | Encounter Summary ---
[place] [address] Care Team Providers Care Insurance Claims Adjuster Name Role Phone Alisha Early APRN Primary Care Provider +1- [phone] Encounter Details Date Type Department Care Team (Latest Contact Info) Description 08/22/2021 11:06 AM EDT - 08/22/2021 11:59 PM EDT Hospital Encounter [place] [address] Family history of breast cancer; Family history [...] Venipuncture (08/22/2021 11:35 AM EDT) Research Venipuncture [facility] Blood 08/22/2021 11:3 5 AM EDT 08/22/2021 11:45 AM EDT Narrative Resulting Agency Comment Spec In Lab Krystian Andrea MD CHEMISTRY ORDERABLES [facility] [place] [address] documented in this encounter Visit Diagnoses Diagnosis [...] prostate documented in this encounter Care Teams Insurance Claims Adjuster Relationship Specialty Start Date End Date Alisha Early APRN [address] [place] [address] PCP - General Family Medicine 08/22/21 documented as of this encounter
--- OUTSIDE RECORDS SUMMARY | 2024-06-13 17:10 | XMS_ITS | Encounter Summary ---
Author Organization [facility] Address [address] [place] [address] Care Team Providers Care Bicycle Messenger Name Role Phone Unknown, Provider Primary Care Provider Unava ilable Encounter Details Date Type Department Care Team (Late st Contact Info) Description 05/15/2020 Lab Requisition [facility] Pathology & Laboratory Medicine - [address] [address] Kelley Devi MD [address] [place] [address] Encounter for other general examination Social [...] of endometriosis. See comment. 05/20/2020 10:39 EST [facility] Diagnosis Comment Deeper sections have been examined. 05/20/2020 10:39 EST [facility] Attestation There was significant resident/fellow involvement in the diagnostic evaluation of this case. By the signature below, the attending physician certifies that they have personally conducted a gross and/or microscopic examination of the described specimens and rendered or confirmed the above diagnosis. 05/20/2020 10:39 [facility] at 1039 Clinical History Preoperative DX: Pelvic pain Postoperative DX:? Endometriosis 05/20/2020 10:39 [facility] Gross Description A. Received [...] B1. SHAI SILVER(ASCP) 05/16/2020 10:10 05/20/2020 10:39 [facility] Resident/Doug w: Darin Vieyra, 05/20/2020 10:39 [facility] Performing Lab [facility] 05/20/2020 10:39 [facility] Scanned Images 05/20/2020 10:39 [facility] Tissue [facility] [place] / Unknown 05/15/2020 10:55 EST 05/16/2020 7:08 EST Tissue specimen (specimen) [facility] / Unknown 05/15/2020 10:55 EST 05/16/2020 7:08 EST us Kelley Devi MD PATHOLOGY ORDERABLES F inal Result [facility] [address] [place] [address] documented in this encounter Visit Diagnoses Diagnosis Encounter for other general examination documented in this encounter Care Teams Bicycle Messenger Relationship Specialty Start Date End Date Unknown, Provider, PCP - General 05/07/20 documented as of this encounter
--- OUTSIDE RECORDS SUMMARY | 2024-06-13 17:10 | XMS_ITS | Encounter Summary ---
Author Organization [facility] [place] [address] Care Team Providers Care Radiation Control Specialist Name Role Phone Alisha Early APRN Primary Care Provider [phone]- [phone] Reason for Visit * Reason Onset Date Comments Results 09/10/2021 Encounter Details Date Type Department Care Team (Late st Contact Info) Description 09/10/2021 Telephone Hematology [place] [address] Osmani Osorio V [facility] [address] Hematology/[place] [address] Results Social History Tobacco Use Types Packs/Day Years Used Date Smoking Tobacco: Never Assessed Sex and Gender Information Value Date Recorded Sex Assigned at Not on file Gender Identity Not on file Sexual Orientation Not on file documented as of this encounter Miscellaneous Notes * Telephone Encounter - Osmani Osorio V [facility] - 09/10/2021 3:53 PM EDT This test result was discussed with the patient by phone. A copy of the test results have been scanned in the medical record and sent to Osiris. A summary of the results is provided below. Please be advised that [place] law requires that all health care workers respect the confidentiality of this information and not pass it along to other health care providers, insurance companies, or individuals without the written permission of the patient. The Familial Cancer Program welcomes any questions about these matters. Our phone number is: [phone]. On 08/22/2021 Osiris was seen for genetic counseling and subsequently underwent genetic testing for a hereditary predisposition to common hereditary cancers, including breast, gynecologic and gastrointestinal. Following are the results of this test. Result: [facility]'s Common Hereditary Cancers Panel showed no mutation was detected. This means that Carmelita not carry a mutation in the genes detectable by this test. The following 47 genes were evaluated for sequence changes and exonic deletions/duplications: APC, LESTER, AXIN2, BARD1, BMPR1A, BRCA1, BRCA2, BRIP1, CDH1, CDK4, CDKN2A ([id number]), CDKN2A ([id number]), CHEK2, CTNNA1, DICER1, EPCAM (EPCAM: Deletion/duplication testing [...] on filedocumented in this encounter Care Teams Radiation Control Specialist Relationship Specialty Start Date End Date Alisha Early APRN [address] [place] [address] PCP - General Family Medicine 08/22/21 documented as of this encounter
--- OUTSIDE RECORDS SUMMARY | 2024-06-13 17:10 | XMS_ITS | Encounter Summary ---
[place] [address] Care Team Providers Care Self Sealing Fuel Tank Builder Name Role Phone Tulio Kline MD Primary Care Provider [phone] Encounter Details Date Type Department Care Team (Late st Contact Info) Description 07/24/2021 Transcribe Orders Psychiatry and [place] [address] Bonita Wallis MD [address] [place] [address] Bipolar 2 disorder Social History Tobacco Use [...] disorders documented in this encounter Care Teams Self Sealing Fuel Tank Builder Relationship Specialty Start Date End Date Tulio Kline MD [address] [place] [address] PCP - General General Internal Medicine 05/12/2108/05 documented as of this encounter
--- OUTSIDE RECORDS SUMMARY | 2024-06-13 17:10 | XMS_ITS | Encounter Summary ---
Author Organization [facility] [place] [address] Care Team Providers Care Clinical Business Manager Name Role Phone Tulio Kline MD Primary Care Provider [phone] Encounter Details Date Type Department Care Team (Late st Contact Info) Description 08/16/2021 Telephone Hematology [place] [address] Krystian Andrea MD Social History [...] scheduled for next week. Krystian Andrea MD welder gas in Hematology-Oncology documented in this encounter Plan of Treatment Not on file documented as of this encounter Visit Diagnoses Not on filedocumented in this encounter Care Teams Clinical Business Manager Relationship Specialty Start Date End Date Tulio Kline MD [address] [place] [address] PCP - General General Internal Medicine 05/12/2108/05 documented as of this encounter
--- OUTSIDE RECORDS SUMMARY | 2024-06-13 17:10 | XMS_ITS | Encounter Summary ---
Author Organization [facility] [place] [address] Care Team Providers Care Electronic Systems Technician Name Role Phone Tulio Kline MD Primary Care Provider [phone] Reason for Referral * Psychiatric (Routine) - Closed Specialty Diagnoses / Procedures Referred By Contac t Referred To Contact Psychiatry Diagnoses Bipolar 2 disorder Other specified anxiety disorders Personal history of other mental and behavioral disorders Tulio Kline MD [address] [place] [address] [facility] [address] [place] [address] Referral ID Status Reason Start Date Expiration Date V isits Requested Visits Authorized [id number] Closed Consult, Test & Treat PCP Updated and/or Approved 07/21/2021 07/21/2022 6 6 Encounter Details Date Type Department Care Team (Late st Contact Info) Description 07/24/2021 Transcribe Orders Psychiatry [place] [address] Tulio Kline MD [address] [place] [address] Bipolar 2 disorder Social History Tobacco [...] disorders documented in this encounter Care Teams Electronic Systems Technician Relationship Specialty Start Date End Date Tulio Kline MD [address] [address] PCP - General General Internal Medicine 05/12/2108/05 documented as of this encounter
--- OUTSIDE RECORDS SUMMARY | 2024-06-13 17:11 | XMS_ITS | Encounter Summary ---
Author Organization [facility] Address [address] [place] [address] Care Team Providers Care Crime Prevention Worker Name Role Phone Unknown, Provider Primary Care Provider Gina ilal Encounter Details Date Type Department Care Team (Late st Contact Info) Description 12/12/[address] Lab Re[address] [facility] Pathology & Laboratory Medicine - [facility] [address] [place], [place] [address] Outr Resulting Lab, Provider Social History Tobacco [...] in accordance with CLIA regulations, College [employer]ologists (CAP) guidelines (Aug 24, 2019), and FDA guidance (Aug 05, 2019). This test is only for use under the Food and Drug Administration's Emergency Use Authorization. Swab ENTIRE NASOPHARYNX / Unknown 12/12/2019 13:00 EDT 12/12/2019 21:44 EDT us Provider Outr Resulting Lab MICROBIOLOGY - GENER AL ORDERABLES Final Result [facility] [place], [place] * COVID-19 TESTING (12/12/2019 13:00 EDT) COVID-19 rt-PCR Result NEGATIVE Negative 12/14/2019 17:24 EDT [facility] Comment: 2019-novel Coronavirus (2019-nCoV) not detected [...] in accordance with CLIA regulations, College of [employer] Pathologists (CAP) guidelines (Aug 24, 2019), and FDA guidance (Aug 05, 2019). This test is only for use under the Food and Drug Administration's Emergency Use Authorization. Performing Lab [employer] Patten 12/14/2019 17:24 EDT [facility] Swab 12/12/2019 13:0 0 EDT 12/12/2019 21:44 EDT us Provider Outr Resulting Lab MICROBIOLOGY - GENER AL ORDERABLES Final Result [facility] [address] [place] [address] [facility] [place], [place] documented in this encounter Visit Diagnoses Not on filedocumented in this encounter Additional Health Concerns Infection Onset Date Last Indicated Resolved Time R/O COVID-19 12/12/2019 12/12/2019 12/17/2019 22:1 7 EDT documented as of this encounter Care Teams Crime Prevention Worker Relationship Specialty Start Date End Date Unknown, Provider, PCP - General 05/07/20 documented as of this encounter
--- OUTSIDE RECORDS SUMMARY | 2024-06-13 17:11 | XMS_ITS | Encounter Summary ---
Author Organization [facility] Address [address] [place] [address] Care Team Providers Care Pipe Line Repairer Name Role Phone Unknown, Provider Primary Care Provider Unava ilable Encounter Details Date Type Department Care Team (Late st Contact Info) Description 09/12/2019 Lab Requisition [facility] Pathology & Laboratory Medicine - [address] [address] Unknown, Provider, Social History Tobacco Use Types [...] gonorrhoeae Result Negative Negative 09/13/2019 14:03 EDT [facility] Chlamydia trachomatis Result Negative Negative 09/13/2019 14:03 EDT [facility] Swab ENTIRE WALL OF CERVIX / Unknown 09/12/2019 16:21 EDT 09/12/2019 21:56 EDT us Provider Unknown MICROBIOLOGY - GENERAL ORDER BENEDICTO Final Result [facility] [address] [place] [address] documented in this encounter Visit Diagnoses Not on filedocumented in this encounter Additional Health Concerns Infection Onset Date Last Indicated Resolved Time R/O COVID-19 12/12/2019 12/12/2019 12/17/2019 22:1 7 EDT documented as of this encounter Care Teams Pipe Line Repairer Relationship Specialty Start Date End Date Unknown, Provider, PCP - General 05/07/20 documented as of this encounter
[2024-06-15 12:48] LABS: Bacterial Vaginosis (BV) Negative (Negative); Candida glabrata Negative (Negative); Candida species group Negative (Negative); Chlamydia Result Negative (Negative); GC Result Negative (Negative); Trichomonas vaginalis Negative (Negative)
== END 2024-06-13 17:09 | disposition home or self-care (01) ==
LOC: NCHCN 17:08
PROVIDERS: PCP Internal Medicine; Visit Provider Nurse Practitioner Family
DX: R30.0 Dysuria (principal); R82.89 Other abnormal findings on cytological and histological examination of urine
CPT/HCPCS: 81513; 87481; 87491; 87591; 87661; 87086